=== PATIENT | male | born 1980 | race Caucasian/White ===

== ENCOUNTER 2021-06-14 15:05 | Emergency (ER) | payer OTHER, SELFPAY ==
--- NOTE | ~2021-06-14 | CT_ITS ---
EXAMINATION: CT soft tissue neck wo con DATE: 06/14/2021 17:27 INDICATION: Lump in throat. Dysphagia. TECHNIQUE: Computed tomography (CT) of the neck was performed without intravenous contrast. Automated exposure control and iterative reconstruction technique were employed. The dose-length product was 5 97.58 mGy-cm. COMPARISON: None FINDINGS: There is mild mediastinal lymphadenopathy measuring up to 2.4 x 1.5 cm. There are calcifica tions in right palatine tonsil. No abscess. There are a few nodules in right lung upper lobe measurin g up to 12 mm. There is mild cervical spondylosis. IMPRESSION: 1. Nodules in right lung measuring up to 12 mm, most likely inflammation or infection. Noncontrast, l ow-dose chest CT is recommended in 3 months. 2. Mild mediastinal lymphadenopathy. Reviewed, dictated and finalized at location A. IMPRESSION: 1. Nodules in right lung measuring up to 12 mm, most likely inflammation or inf ection. Noncontrast, low-dose chest CT is recommended in 3 months. 2. Mild mediastinal lymphadenopathy.
[2021-06-14 15:16] VITALS: BP 141/103; PULSE 125; RESP 20; TEMP 35.8; O2SAT 96
--- NOTE | 2021-06-14 17:07 | ED.GENADULT ---
HPI - General Adult General Chief complaint: Unspecified Stated complaint: lump in throat with covid Time Seen by Provider: 06/14/21 16:45 Source: patient Mode of arrival: ambulatory Limitations: no limitations History of Present Illness HPI narrative: This is a 40-year-old male that presents to the emergency department for feeling of a lump in his throat noted over the last 6 weeks. Reports he has been referred to ENT for this, but has been unable to make an appointment yet. He was also diagnosed with Covid 8 days ago. Reports he feels like it is getting difficult to swallow. Denies dyspnea. Related Data Home Medications Medication Instructions Recorded Confirmed cetirizine [Zyrtec] 10 mg PO DAILY 06/14/21 famotidine 20 mg PO DAILY 06/14/21 Allergies Allergy/AdvReac Type Severity Reaction Status Date / Time codeine Allergy Hives Verified 06/14/21 16:14 Review of Systems Review of Systems: CONSTITUTIONAL: Reports fever ENT: Reports sore throat RESPIRATORY: Reports cough. Denies dyspnea. All systems reviewed & are unremarkable except as noted in HPI and below PMFSH Past Medical History Medical History (Updated 06/14/21 @ 19:08 by Mary Cee PA-C) History of gastroesophageal reflux (GERD) History of seasonal allergies Exam Narrative: GENERAL: Well-appearing, well-nourished, and in no acute distress. HEAD: Normocephalic, atraumatic. EYES: EOMI. ENT: Nares clear, no rhinorrhea or epistaxis. Mucous membranes moist. Oropharynx without tonsillar hypertrophy exudate or other lesions. Bilateral TMs pearly kelley non-bulging NECK: Supple. No adenopathy or masses. CHEST: Clear to auscultation. No respiratory distress. No wheezes rales or rhonchi HEART: Regular rate and rhythm. No murmur heard. Normal peripheral pulses. EXTREMITIES: Normal range of motion. No edema. SKIN: Warm, dry, no rash. NEURO: No focal deficits. Alert and oriented x3. PSYCH: Normal mood and affect Course Vital Signs Vital signs: Vital Signs Temperature 96.4 F L 06/14/21 15:16 Pulse Rate 125 H 06/14/21 15:16 Respiratory Rate 20 06/14/21 15:16 Blood Pressure 141/103 H 06/14/21 15:16 Pulse Oximetry 96 06/14/21 15:16 Temperature 98.4 F 06/14/21 19:18 Pulse Rate 113 H 06/14/21 19:18 Respiratory Rate 20 06/14/21 19:18 Blood Pressure 145/82 H 06/14/21 19:18 Pulse Oximetry 97 06/14/21 19:18 Medical Decision Making MDM Narrative Medical decision making narrative: Patient presents emergency department for a feeling of lump in his throat noted over the last 6 weeks. He is afebrile and nontoxic-appearing. CBC and metabolic panel without concerning findings. ESR and CRP are not elevated. CT scan of the neck soft tissue shows a nodule in the right lung measuring up to 12 mm, most likely inflammation or infection. Noncontrast low-dose chest CT is recommended in 3 months. Also shows mild mediastinal lymphadenopathy. Patient was updated on case findings. Instructed that he likely needs to follow-up with a quality assurance manager for an EGD. He was able to tolerate oral intake in the ED. He is stable and felt appropriate for further outpatient evaluation. He was given warnings to return the ER Vital Signs Vital Signs: Vital Signs Temperature 96.4 F L 06/14/21 15:16 Pulse Rate 125 H 06/14/21 15:16 Respiratory Rate 20 06/14/21 15:16 Blood Pressure 141/103 H 06/14/21 15:16 Pulse Oximetry 96 06/14/21 15:16 Temperature 98.4 F 06/14/21 19:18 Pulse Rate 113 H 06/14/21 19:18 Respiratory Rate 20 06/14/21 19:18 Blood Pressure 145/82 H 06/14/21 19:18 Pulse Oximetry 97 06/14/21 19:18 Lab Data Lab results reviewed: Yes I reviewed the patient's lab results. Result diagrams: 06/14/21 17:38 06/14/21 17:38 Labs: Lab Results 06/14/21 06/14/21 Range/Units 17:38 17:38 WBC 5.4 (4.5-10.0) K/mm3 RBC 6.10 (4.6-6.20) M/mm3 Hgb 17.2 (14.0-18.0) g/
[2021-06-14 17:45] LABS: Basophils Percent Auto 0.2 % (0.2-1.2); Hematocrit 50.6 % (42.0-52.0); Hemoglobin 17.2 g/dL (14.0-18.0); Immature Granulocyte Absolute 0.02 K/mm3 (0.00-0.031); Immature Granulocyte Percent A 0.4 % (0-0.5); Lymphocytes Absolute Auto 1.17 K/mm3 (0.9-3.2); Lymphocytes Percent Auto 21.7 % (18.3-44.2); Mean Corpuscular Hemoglobin 28.2 pg (26-34); Mean Platelet Volume 9.7 fl (7.4-10.4); Monocytes Absolute Auto 0.9 K/mm3 (0.1-0.6); Monocytes Percent Auto 16.4 % (2.6-8.5); Neutrophils Absolute Auto 3.3 K/mm3 (1.3-6.7); Neutrophils Percent Auto 61.3 % (45.5-73.1); Platelet Count Result 178 k/mm3 (150-375); Red Cell Distribution Width 12.7 % (11.5-14.5); White Blood Count 5.4 K/mm3 (4.5-10.0)
[2021-06-14 17:57] LABS: Anion Gap 13 mmol/L (8-16); Blood Urea Nitrogen 9 mg/dL (9-20); CRP 0.8 mg/dL (<1.0); Calcium 9.9 mg/dL (8.4-10.2); Carbon Dioxide 19 mmol/L (22-30); Chloride 103 mmol/L (98-107); Estimated CRCL calculation 139 ml/min; Estimated Glomerular Filt Rate > 60; Glucose 93 mg/dL (65-110); Sodium 135 mmol/L (137-145)
[2021-06-14 18:16] LABS: Erythrocyte Sedimentation Rate 3 mm/hr (0-20)
[2021-06-14] MEDS: PANTOPRAZOLE SODIUM IV 40 MG VIAL IV PUSH (18:48)
[2021-06-14 19:18] VITALS: BP 145/82; PULSE 113; RESP 20; TEMP 36.9; O2SAT 97
[2021-06-14 19:48] VITALS: BP 145/82; PULSE 113; RESP 20; TEMP 36.9; O2SAT 97
== END 2021-06-14 19:50 | disposition home or self-care (01) ==
PROVIDERS: Physician Assistant; Emergency Provider Emergency Medicine
DX: R13.10 Dysphagia, unspecified (principal); U07.1 COVID-19; K21.9 Gastro-esophageal reflux disease without esophagitis; R91.8 Other nonspecific abnormal finding of lung field
CPT/HCPCS: 36415; 70490; 80048; 85025; 85652; 86140; 96374; 99284; C9113

== ENCOUNTER 2021-06-15 13:03 | Emergency (ER) | payer OTHER, SELFPAY ==
--- NOTE | ~2021-06-15 | XR_ITS ---
EXAMINATION: XR chest 1V portable DATE: 06/15/2021 15:09 INDICATION: Nausea and vomiting. Shortness of breath. COVID-19 positive. TECHNIQUE: A single frontal view of the chest was obtained. COMPARISON: Neck CT 06/14/2021 FINDINGS: There are mild patchy airspace opacities in the mid and lower lung zones. No pleural effusi on or pneumothorax. The heart size is normal. IMPRESSION: 1. Mild multifocal lung disease, consistent with COVID-19 pneumonia. Reviewed, dictated and finalized at location A.
[2021-06-15 13:13] VITALS: BP 128/96; PULSE 111; RESP 22; TEMP 36.8; O2SAT 97
[2021-06-15 13:47] VITALS: BP 129/91; PULSE 103; RESP 23; O2SAT 93
[2021-06-15] MEDS: ONDANSETRON HCL ODT 4 MG TABLET PO (14:38)
--- NOTE | 2021-06-15 14:38 | ED.GENADULT ---
HPI - General Adult General Chief complaint: Shortness of Breath/Dyspnea Stated complaint: COVID+, DIFFICULTY BREATHING Time Seen by Provider: 06/15/21 13:43 Source: patient Mode of arrival: ambulatory Limitations: no limitations History of Present Illness HPI narrative: 40-year-old male Previously healthy but no Covid vaccination He is Covid positive and has had a number of complaints over the last 8 or 9 days, including subjective fevers general weakness and fatigue, nausea, poor p.o. intake, difficulty swallowing, and occasional shortness of breath; not much of a cough Seen yesterday, ST neck CT fairly unremarkable apart from incidental nodule Related Data Home Medications Medication Instructions Recorded Confirmed cetirizine [Zyrtec] 10 mg PO DAILY 06/14/21 famotidine 20 mg PO DAILY 06/14/21 Allergies Allergy/AdvReac Type Severity Reaction Status Date / Time codeine Allergy Hives Verified 06/15/21 13:03 Review of Systems Review of Systems: All systems reviewed & are unremarkable except as noted in HPI and below Constitutional: Constitutional: Reports no additional constitutional complaints, Reports chills, Reports fatigue, Reports fever(s), Denies headache(s) and Reports weakness Eyes: Eyes: Reports no additional eye complaints and Denies change in vision ENT: Reports dysphagia, Reports dizziness, Denies headache(s) and Reports sore throat Cardiovascular: Cardiovascular: Denies chest pain and Denies dyspnea Respiratory: Respiratory: Reports dyspnea Gastrointestinal: Gastrointestinal: Denies abdominal pain, Denies diarrhea, Reports nausea and Reports vomiting Genitourinary: Genitourinary: Denies dysuria and Denies urinary frequency Musculoskeletal: Musculoskeletal: Reports myalgias, Denies deformity, Denies arthralgias, Denies joint swelling and Denies numbness Integumentary/Breasts: Skin/Breast: Denies rash and Denies wounds Neurologic: Denies headache(s), Denies focal weakness and Denies numbness Psychiatric: Psychiatric: Reports no additional psychiatric complaints Endocrine: Endocrine: Reports no additional endocrine complaints Hematologic/Lymphatic: Hematologic/Lymphatic: Reports no additional hematologic/lymphatic complaints Allergic/Immunologic: Allergic/Immunologic: Reports no additional allergic/immunologic complaints PMFSH Past Medical History Medical History (Updated 06/15/21 @ 14:40 by Moustapha Gasca MD) History of gastroesophageal reflux (GERD) History of seasonal allergies Social History Social History Gender identity (if verbalized by the patient): Male Exam Const: General: cooperative, no acute distress and alert Orientation/consciousness: patient oriented x3 (alert) HENMT: Head: normal to inspection, normocephalic and atraumatic Ears: external ears normal General nose exam: no epistaxis Mouth: Yes Normal oral and palatal mucosa present and Yes moist mucous membranes Eyes: Conjunctivae: conjunctivae normal Pupils: Equal, round and reactive pupils present EOM: EOMs intact bilaterally Neck: Neck: normal visual inspection, supple and no JVD Resp: Effort & Inspection: normal respiratory effort and not labored Auscultation: clear to auscultation bilaterally, no rales, no rhonchi, no wheezes and other (BS =) Cardio: Rate: regular rate Rhythm: regular rhythm Heart sounds: no murmurs GI: GI Palp: Yes Soft to palpation and No Tenderness to palpation present (GI) Skin: General skin exam: normal color and no rashes or lesions noted Neuro: General: patient oriented x3 (alert) and moves all extremities Speech: normal speech Extrem: General: normal to inspection and no pedal edema Psych: Affect: normal affect Course Vital Signs Vital signs: Vital Signs Temperature 36.8 C 06/15/21 13:13 Pulse Rate 111 H 06/15/21 13:13 Respiratory Rate 22 H 06/15/21 13:13 Blood Pressure 128/96 H 06/15/21 13:13 Pulse Oximetry 97 06/15/21 13:13
[2021-06-15 16:02] VITALS: BP 134/78; PULSE 78; RESP 18; O2SAT 99
== END 2021-06-15 16:04 | disposition home or self-care (01) ==
PROVIDERS: Emergency Provider Emergency Medicine
DX: U07.1 COVID-19 (principal); K21.9 Gastro-esophageal reflux disease without esophagitis; R91.8 Other nonspecific abnormal finding of lung field
CPT/HCPCS: 71045; 99283; A9270

== ENCOUNTER 2021-06-18 23:55 | Emergency (ER) | payer OTHER, SELFPAY ==
--- NOTE | ~2021-06-18 | XR_ITS ---
XR chest 2V DATE: 06/19/2021 00:23 INDICATION: Shortness of breath, cough TECHNIQUE: PA and lateral views COMPARISON: 06/15/2021 portable AP chest FINDINGS: Increased patchy consolidating infiltrates are noted in the mid and lower lung zones primar yamilka, consistent with bilateral pneumonia. No pleural effusion or pulmonary vascular congestion or pneumothorax. Normal heart size. No hilar or mediastinal enlargement. IMPRESSION: Patchy consolidating infiltrates involving primarily the mid and lower lung zones, increa sed since 06/15/2019, consistent with bilateral pneumonia Reviewed, dictated and finalized at location A. IMPRESSION: Patchy consolidating infiltrates involving primarily the mid and lo wer lung zones, increased since 06/15/2019, consistent with bilateral pneumonia
[2021-06-18 23:58] VITALS: BP 135/71; PULSE 103; RESP 20; TEMP 36.4; O2SAT 99
[2021-06-19 00:21] LABS: Basophils Percent Auto 0.2 % (0.2-1.2); Eosinophils Percent Auto 0.2 % (0-4.4); Hematocrit 48.3 % (42.0-52.0); Hemoglobin 16.5 g/dL (14.0-18.0); Immature Granulocyte Absolute 0.03 K/mm3 (0.00-0.031); Immature Granulocyte Percent A 0.5 % (0-0.5); Lymphocytes Absolute Auto 1.68 K/mm3 (0.9-3.2); Lymphocytes Percent Auto 26.7 % (18.3-44.2); Mean Corpuscular HGB Conc 34.2 g/dl (32-36); Mean Corpuscular Hemoglobin 27.8 pg (26-34); Mean Corpuscular Volume 81.3 fl (80-100); Mean Platelet Volume 10.1 fl (7.4-10.4); Monocytes Percent Auto 15.7 % (2.6-8.5); Neutrophils Absolute Auto 3.6 K/mm3 (1.3-6.7); Neutrophils Percent Auto 56.7 % (45.5-73.1); Platelet Count Result 200 k/mm3 (150-375); Red Blood Count 5.94 M/mm3 (4.6-6.20); Red Cell Distribution Width 12.7 % (11.5-14.5); White Blood Count 6.3 K/mm3 (4.5-10.0)
[2021-06-19 00:30] LABS: Anion Gap 10 mmol/L (8-16); Blood Urea Nitrogen 8 mg/dL (9-20); Carbon Dioxide 21 mmol/L (22-30); Chloride 101 mmol/L (98-107); Estimated Glomerular Filt Rate > 60; Glucose 95 mg/dL (65-110); Potassium 3.6 mmol/L (3.4-5.0); Sodium 132 mmol/L (137-145)
--- NOTE | 2021-06-19 00:30 | ECG_ITS ---
Measurements Intervals [place] Rate: 103 P: 4 NH: 124 QRS: 85 QRSD: 86 T: 48 QT: 334 QTc: 438 Interpretive Statements SINUS TACHYCARDIA INCOMPLETE RIGHT BUNDLE BRANCH BLOCK DELAYED PRECORDIAL R/S TRANSITION BORDERLINE T WAVE ABNORMALITY- INFERIOR LEADS BORDERLINE ECG Electronically Signed On 06-19-2021 7:43:20 CDT by Ramos Huang D.O.
[2021-06-19 02:28] VITALS: BP 119/79; PULSE 101; RESP 19; O2SAT 97
[2021-06-19 04:04] VITALS: BP 118/88; PULSE 93; RESP 20; O2SAT 94
[2021-06-19 04:27] LABS: Alveolar/Arterial O2 Gradient 38.8 mmHg; Carboxyhemoglobin 0.1 % THb (0-2.0); Fractional Inspired Oxygen 21 %; HCO3 ABG 21.6 mEq/l (22.0-26.0); Methemoglobin ABG 0.3 %THb (0-1.5); Oxygen Content ABG 22.2 %vol (16.0-22.0); Oxygen Saturation ABG 96.5 % (95.0-100.0); Oxyhemoglobin 94.8 % THb (90.0-100.0); PCO2 ABG 28.4 mmHg (35.0-45.0); PO2 ABG 76.9 mmHg (80.0-100.0); PO2 FiO2 Ratio Arterial Blood 3.66 %; Reduced Hemoglobin 4.8 %THb (0-5.0); Total Hemoglobin 16.7 g/dL (12.0-18.0)
[2021-06-19 04:28] LABS: Modified Allen's Test Pass; Site Drawn RIGHT RADIAL
[2021-06-19 04:29] LABS: Device ROOM AIR
[2021-06-19 05:01] LABS: Lactic Acid Reflex 1.1 mmol/L (0.7-2.1)
[2021-06-19 05:03] LABS: Prothrombin Time 13.2 Seconds (11.1-14.7)
[2021-06-19 05:05] LABS: CRP 3.4 mg/dL (<1.0)
[2021-06-19 05:07] LABS: D Dimer 0.46 ug/mL (<0.48)
[2021-06-19] MEDS: ALBUTEROL SULFATE (*SP) AEROSOL 1 PUFF 4 PUFF INHALATION (05:27)
[2021-06-19] MEDS: BENZONATATE 100 MG CAPSULE 200 MG PO (05:31)
--- NOTE | 2021-06-19 06:22 | ED.SOB ---
HPI - SOB/Dyspnea General Chief Complaint: Shortness of Breath/Dyspnea Stated Complaint: covid +, low oxygen sat Time Seen by Provider: 06/19/21 03:59 Source: patient and RN notes reviewed Mode of arrival: ambulatory Limitations: no limitations History of Present Illness HPI Narrative: This is a 40 year old Covid + male who presents for evaluation of worsening cough. Patient state he developed cough and fever on June 05 and he was found to have covid on June 07. He reports has been taking over the counter medication for his symptoms. He came to ER today because he is having difficulty sleep for the past few nights due to severe cough. He reports he is short of breath when he is coughing. He also reports his oxygen reported that his oxygen saturation was in the 80s. He reports chest pain only when he coughs. He denies vomiting. He has been using albuterol inhaler without relief. He denies leg swelling or calf pain. He also denies fever in the past 24 hours. Related Data Home Medications Medication Instructions Recorded Confirmed cetirizine [Zyrtec] 10 mg PO DAILY 06/14/21 famotidine 20 mg PO DAILY 06/14/21 Allergies Allergy/AdvReac Type Severity Reaction Status Date / Time codeine Allergy Hives Verified 06/15/21 13:03 Review of Systems Review of Systems: All systems reviewed & are unremarkable except as noted in HPI and below PMFSH Past Medical History Medical History (Updated 06/19/21 @ 06:32 by Elza Gonzalez MD) History of gastroesophageal reflux (GERD) History of seasonal allergies Social History Social History (Updated 06/19/21 @ 06:27 by Elza Gonzalez MD) Smoking status: Never smoker Gender identity (if verbalized by the patient): Male Exam Const: General: no acute distress and alert Orientation/consciousness: patient oriented x3 Eyes: EOM: EOMs intact bilaterally Chest: Chest palpation & inspection: normal inspection of the chest Resp: Effort & Inspection: normal respiratory effort, not labored, no retractions and not tachypneic Auscultation: clear to auscultation bilaterally Other: able to speak in full complete sentences without distress Cardio: Rate: regular rate Rhythm: regular rhythm Heart sounds: no murmurs GI: GI Palp: Yes Soft to palpation, No Tenderness to palpation present (GI) and No Guarding due to palpation present (GI) Auscultation: normal bowel sounds Back/Spine/Pelvis: Back: no CVA tenderness Skin: General skin exam: normal color Rashes: no rashes Neuro: General: patient oriented x3, moves all extremities and CN's II-XI intact bilaterally Extrem: General: normal to inspection Psych: Mental Status: mental status grossly normal Affect: normal affect Course Reevaluation(s) Reevaluation #1: Patient was ambulated with pulse oximeter. It is reported that his saturation was mostly in 95% and it dropped lowest to 93% . I have discussed with patient plan to discharge home. He does not require oxygen at this time. He is outside of window for remdesivir. I discussed symptomatic management. Date: 06/19/21 Time: 06:28 Vital Signs Vital signs: Vital Signs Temperature 97.5 F L 06/18/21 23:58 Pulse Rate 103 H 06/18/21 23:58 Respiratory Rate 20 06/18/21 23:58 Blood Pressure 135/71 06/18/21 23:58 Pulse Oximetry 99 06/18/21 23:58 Temperature 97.5 F L 06/18/21 23:58 Pulse Rate 108 H 06/19/21 06:50 Respiratory Rate 20 06/19/21 06:50 Blood Pressure 125/89 06/19/21 06:50 Pulse Oximetry 91 06/19/21 06:50 MDM - SOB/Dyspnea Lab Data Attestation: I reviewed the patient's lab results. Result diagrams: 06/19/21 00:05 06/19/21 00:05 Labs: Lab Results 06/19/21 06/19/21 06/19/21 Range/Units 00:05 00:05 04:21 WBC 6.3 (4.5-10.0) K/mm3 RBC 5.94 (4.6-6.20) M/mm3 Hgb 16.5 (14.0-18.0) g/dL Hct 48.3 (42.0-52.0) % MCV 81.3 (80-100) fl MCH 27.8 (26-34) pg
[2021-06-19 06:50] VITALS: BP 125/89; PULSE 108; RESP 20; O2SAT 91
== END 2021-06-19 07:01 | disposition home or self-care (01) ==
PROVIDERS: Emergency Provider General Practice
DX: U07.1 COVID-19 (principal); J12.82 Pneumonia due to coronavirus disease 2019; K21.9 Gastro-esophageal reflux disease without esophagitis; R00.0 Tachycardia, unspecified; I45.10 Unspecified right bundle-branch block; R94.31 Abnormal electrocardiogram [ECG] [EKG]
CPT/HCPCS: 36415; 36600; 71046; 80048; 82375; 82728; 82805; 83050; 83605; 83735; 85025; 85380; 85610; 85730; 86140; 93005; 94640; 99284; A9270

== ENCOUNTER 2023-01-19 08:25 | Emergency (ER) | payer OTHER, SELFPAY ==
--- NOTE | 2023-01-19 08:27 | ED.BACK ---
HPI - Back Pain/Injury General Chief Complaint: Back Pain/Injury Stated Complaint: Lower back pain Time Seen by Provider: 01/19/23 08:40 Source: patient and RN notes reviewed Mode of arrival: ambulatory Limitations: no limitations History of Present Illness HPI Narrative: 42-year-old male presents with concern for low back pain. Reports he was working on his back in the gym yesterday and then went home and ?overdid it?. Reports he began having low back pain that radiates down both legs and to the groin. He has not taken any [id number]-lkjolag medications for his symptoms. Reports he has had similar pain like this once in the past that he did not seek treatment for. He denies loss of bowel or bladder function, perianal anesthesia, weakness in any extremity, abdominal pain, fever MD elicited complaint: back pain Related Data Home Medications Medication Instructions Recorded Confirmed omalizumab 75 mg/0.5 mL 75 mg subcut MONTHLY 01/19/23 01/19/23 subcutaneous syringe (Xolair) Allergies Allergy/AdvReac Type Severity Reaction Status Date / Time codeine Allergy Hives Verified 01/19/23 08:39 Review of Systems Review of Systems: CONSTITUTIONAL: Denies malaise, chills, sweats, or fever. CARDIOVASCULAR: Denies chest pain, palpitations, or edema. RESPIRATORY: Denies cough or dyspnea. GASTROINTESTINAL: Denies abdominal pain, nausea, vomiting, diarrhea, loss of bowel function GENITOURINARY: Denies dysuria, hematuria, frequency, loss of bladder function. SKIN: Denies rash or itching. MUSCULOSKELETAL: Reports low back pain that radiates to both legs NEUROLOGIC: Denies numbness, weakness, or headache. All systems reviewed & are unremarkable except as noted in HPI and below PMFSH Past Medical History Medical History (Updated 01/19/23 @ 08:47 by Lorrie Reyes NP) History of gastroesophageal reflux (GERD) History of seasonal allergies Social History Social History (Updated 06/19/21 @ 06:27 by Elza Gonzalez MD) Smoking status: Never smoker Gender identity (if verbalized by the patient): Male Comments At time of signature, agree with nursing past medical, surgical, social and family history. There is no relevant family history pertinent to the presenting complaint Exam Narrative: GENERAL: Well-appearing, well-nourished, and in no acute distress. HEAD: Normocephalic, atraumatic. EYES: PERRLA and EOMI. NECK: Supple. No lymphadenopathy. CHEST: Clear to auscultation. No respiratory distress. HEART: Regular rate and rhythm. Distal pulses palpable and equal, cap refill <3 seconds ABDOMEN: Soft, nontender, nondistended, normal active bowel sounds, no palpable or pulsatile masses. No CVA tenderness MUSCULOSKELETAL: Normal range of motion and strength in all extremities; 5/5 strength with hip flexion and extension, dorsiflexion and extension, knee flexion and extension, plantar flexion and extension. Normal sensation in dermatomal distributions with sensitivity to light touch and pain. No midline back tenderness to palpation. No paraspinal tenderness. Transfers from sitting to standing. SKIN: Warm, dry, no rash. No ecchymosis, erythema, open wounds to back. NEURO: No focal deficits. Alert and oriented x3. Reflexes intact. Normal gait. PSYCH: Normal mood and affect Course Course Emergency Course: Patient is aware of diagnosis, understands and agrees to treatment plan. Anticipatory guidance given. Patient agrees to follow-up as directed and is aware of reasons to seek care at the emergency department. Portions of this record may have been created with voice recognition software Level of Care: Express Care Visit Vital Signs Vital signs: Reviewed. MDM - Back Pain/Injury MDM Narrative Medical decision making narrative: No risk factors or findings concerning for epidural abscess, diskitis, vertebral osteomyelitis, cord compression, cauda equina, vertebral fracture or bone malignancy, AAA, or pyelonephritis. Patient i
[2023-01-19 08:38] VITALS: BP 135/81; PULSE 77; RESP 16; TEMP 36.3; O2SAT 99
== END 2023-01-19 08:53 | disposition home or self-care (01) ==
PROVIDERS: Emergency Provider Nurse Practitioner; PCP Family Medicine
DX: M54.50 Low back pain, unspecified (principal); K21.9 Gastro-esophageal reflux disease without esophagitis
CPT/HCPCS: 99213; G0463

== ENCOUNTER 2023-02-02 18:16 | Emergency (ER) | payer OTHER, SELFPAY ==
[2023-02-02 18:26] VITALS: BP 133/87; PULSE 79; RESP 16; TEMP 36.4; O2SAT 97
--- NOTE | 2023-02-02 18:26 | ED.HA ---
HPI - Headache General Chief Complaint: Headache Stated Complaint: severe Headache/nausea dizzy Time Seen by Provider: 02/02/23 18:26 History of Present Illness HPI Narrative: Patient is a 42-year-old male who presents to urgent care with complaints of a severe right-sided headache. Patient states that had a sudden onset at noon today and he has taken 1 aspirin without relief. Patient states he felt great this morning, went to the gym did a good workout. Denies any recent illness. States he is now having some blurry vision bilaterally. States that ?this is the worst headache he has ever had?. Patient has not been diagnosed with migraines in the past. Denies any exacerbation to light or sound. Denies any nausea or vomiting. No other acute complaints. No acute distress noted. Patient aware of the plan of care. Some parts of this dictation were generated by voice recognition software and may contain typographical and/or grammatical inaccuracies. Related Data Home Medications Medication Instructions Recorded Confirmed omalizumab 75 mg/0.5 mL 75 mg subcut MONTHLY 01/19/23 01/19/23 subcutaneous syringe (Xolair) famotidine 40 mg tablet mg 02/02/23 Allergies Allergy/AdvReac Type Severity Reaction Status Date / Time codeine Allergy Hives Verified 01/19/23 08:39 Review of Systems Review of Systems: CONSTITUTIONAL: Denies fever, chills, or sweats. EYES: Denies visual changes, redness, or discharge. ENT: Denies rhinorrhea, congestion, sore throat, or otalgia. CARDIOVASCULAR: Denies chest pain, palpitations, or edema. RESPIRATORY: Denies cough or dyspnea. GASTROINTESTINAL: Denies abdominal pain, nausea, vomiting, or diarrhea. GENITOURINARY: Denies dysuria or hematuria. SKIN: Denies rash or itching. MUSCULOSKELETAL: Denies back pain, joint pain, or myalgia. NEUROLOGIC: Reports of severe headache and blurry vision All other systems reviewed are negative, except as documented in HPI. [facility] Past Medical History Medical History (Updated 02/02/23 @ 18:47 by ELLI San) History of gastroesophageal reflux (GERD) History of seasonal allergies Social History Social History (Updated 06/19/21 @ 06:27 by Elza Gonzalez MD) Smoking status: Never smoker Gender identity (if verbalized by the patient): Male Comments At the time of my signature, I reviewed and agree with the nursing past medical, surgical, social, and family history. There is no relevant family history pertinent to the patient complaint. Exam Narrative: GENERAL: This is a well-nourished, well-developed patient, in no apparent distress. HEAD: normocephalic, atraumatic. EYES: PERRL. Sclera clear/white. Vision is grossly intact. EARS: External ears normal NOSE: External nose normal with no obvious nasal discharge, nares without redness, no rhinorrhea. THROAT: Mucous membranes moist NECK: Neck supple CARDIOVASCULAR: Regular rate and rhythm without murmurs, gallops, or rubs. RESPIRATORY: Clear to auscultation. Breath sounds equal bilaterally. No wheezes, rales, or rhonchi. SKIN: warm, intact with no suspicious lesions or rash, good texture and turgor. NEURO: awake, alert, and oriented to person, place and time. There were no obvious focal neurologic abnormalities. EXTREMITIES: No clubbing, cyanosis, or edema. Course Course Level of Care: Express Care Visit Vital Signs Vital signs: Vital Signs Temperature 97.5 F L 02/02/23 18:26 Pulse Rate 79 02/02/23 18:26 Respiratory Rate 16 02/02/23 18:26 Blood Pressure 133/87 02/02/23 18:26 Pulse Oximetry 97 02/02/23 18:26 Oxygen Delivery Room Air 02/02/23 18:26 Temperature 97.5 F L 02/02/23 18:26 Pulse Rate 79 02/02/23 18:26 Respiratory Rate 16 02/02/23 18:26 Blood Pressure 133/87 02/02/23 18:26 Pulse Oximetry 97 02/02/23 18:26 Oxygen Delivery Room Air 02/02/23 18:26 Reviewed Transfer Transfered to: [facility] Transportation: Other ([place]
== END 2023-02-02 19:00 | disposition home or self-care (01) ==
PROVIDERS: Emergency Provider Nurse Practitioner Family
DX: R51.9 Headache, unspecified (principal)
CPT/HCPCS: 99212; G0463

== ENCOUNTER 2024-11-29 08:00 | Emergency (ER) | payer OTHER, SELFPAY ==
[2024-11-29 08:10] VITALS: BP 130/98; PULSE 129; RESP 20; TEMP 36.3; O2SAT 92
--- NOTE | 2024-11-29 08:17 | ED_ITS ---
HPI - General Adult General Chief complaint: GI Bleed Stated complaint: vomiting dark red blood Time Seen by Provider: 11/29/24 08:04 History of Present Illness HPI narrative: 44-year-old male presents emergency department for evaluation for nausea vomiting and diarrhea. Patient reports that his symptoms started yesterday and had decreased p.o. intake. Patient states he has had heart palpitations with this. Patient was concerned this morning because he did have some streaked blood in his emesis. Patient denies any shyam blood. Patient denies any prior history of significant GI bleed. Patient states he does have a history of aggressive emesis and also has a history of gastritis. Patient does take aspirin and atorvastatin. Patient is following up with primary care physician and they are following his blood pressures the patient does not take any blood pressure medications. Related Data Home Medications ?Medication ?Instructions ?Recorded ?Confirmed ?Last Taken ?Type omalizumab 75 mg/0.5 mL 75 mg subcut MONTHLY 01/19/23 01/19/23 Unknown History subcutaneous syringe (Xolair) famotidine 40 mg tablet mg 02/02/23 Unknown History Allergies Allergy/AdvReac Type Severity Reaction Status Date / Time codeine Allergy Hives Verified 11/29/24 08:02 topiramate Allergy Unknown Verified 11/29/24 08:02 Review of Systems 2 Review of Systems: All systems reviewed & are unremarkable except as noted in HPI and below PMFSH Past Medical History Medical History (Updated 11/29/24 @ 11:01 by Nomi Solano MD) History of gastroesophageal reflux (GERD) History of seasonal allergies Social History Social History (Updated 06/19/21 @ 06:27 by Elza Gonzalez MD) Smoking status: Never smoker Gender identity (if verbalized by the patient): Male Exam 2 Narrative: APPEARANCE: Ill-appearing HEAD: normocephalic, atraumatic. EYES: PERRLA/EOMI, conjunctivae clear. NOSE: Normal no drainage EARS:TMS clear with good light reflex. THROAT: Pharynx clear, no exudate. NECK: Supple. No adenopathy, no masses. RESPIRATORY: Airway patent, respirations nonlabored. Clear to auscultation bilaterally, no rales, rhonchi, wheezing. CARDIOVASCULAR: Regular rate and rhythm without murmurs rubs or gallops. ABDOMINAL: Mild epigastric tenderness to palpation without rebound, normal bowel sounds MUSCULOSKELETAL: Moves all extremities. Strength/ROM intact, No edema, No calf tenderness. NEURO: Alert. Cranial nerves II through XII intact. Good gait. Good coordination SKIN: Warm, dry. Normal Color Course Vital Signs Vital signs: Vital Signs Temperature 97.4 F L 11/29/24 08:10 Pulse Rate 129 H 11/29/24 08:10 Respiratory Rate 20 11/29/24 08:10 Blood Pressure 130/98 H 11/29/24 08:10 Pulse Oximetry 92 11/29/24 08:10 Temperature 97.4 F L 11/29/24 08:10 Pulse Rate 107 H 11/29/24 11:15 Respiratory Rate 16 11/29/24 11:15 Blood Pressure 120/80 11/29/24 11:15 Pulse Oximetry 98 11/29/24 11:15 Medical Decision Making MDM Narrative Medical decision making narrative: 44 old male presenting to the emergency department for evaluation for nausea vomiting and diarrhea. Patient had elevated heart rate on arrival but was treated with 2 L of IV fluid. Patient does have a white blood cell count of 16.2 and hemoglobin of 17.6. No acute abnormalities on the patient's CMP. On re-evaluation patient states he does feel significantly improved. Patient will be treated with omeprazole for home was Zofran and instructions for clear liquid diet. Patient and family are updated on reasons to return to the emergency department Differential Diagnosis Differential Diagnosis: Gastroenteritis, GI bleed, influenza, RSV, COVID, viral syndrome, esophageal rupture, Cassidy-Chery tear, [place] Vital Signs Vital Signs: Vital Signs Temperature 97.4 F L 11/29/24 08:10 Pulse Rate 129 H 11/29/24 08:10 Respiratory Rate 20 11/29/24 08:10 Blood Pressure 130/98 H 11/29/24 08:10 Pulse Oximetry 92 11/29/24 08:10 Temperature 97.4 F L 11/29/24 08:10 Pulse Rate 107 H 11/29/24 11:15 Respiratory Rate 16 11/29/24 11:15 Blood Pressure 120/80 11/29/24 11:15 Pulse Oximetry 98 11/29/24 11:15 Lab Data Lab results reviewed: Yes I reviewed the patient's lab results. 11/29/24 08:16 11/29/24 08:16 Labs: Lab Results 11/29/24 Range/Units 08:16 WBC 16.2 H (4.5-10.0) K/mm3 RBC 6.13 (4.6-6.20) M/mm3 Hgb 17.6 (14.0-18.0) g/dL Hct 51.7 (42.0-52.0) % MCV 84.3 (80-100) fl MCH 28.7 (26-34) pg MCHC 34.0 (32-36) g/dl RDW 12.9 (11.5-14.5) % Plt Count 298 (150-375) k/mm3 MPV 9.5 (7.4-10.4) fl Immature Gran % (Auto) 0.3 (0-0.5) % Neut % (Auto) 87.2 H (45.5-73.1) % Lymph % (Auto) 4.7 L (18.3-44.2) % [place] % (Auto) 6.4 (2.6-8.5) % Eos % (Auto) 1.1 (0-4.4) % Baso % (Auto) 0.3 (0.2-1.2) % Lymph # (Auto) 0.76 L (0.9-3.2) K/mm3 [place] # (Auto) 1.0 H (0.1-0.6) K/mm3 Eos # (Auto) 0.2 (0-0.3) K/mm3 Baso # (Auto) 0.1 (0.0-0.1) K/mm3 Abs Immat Gran (auto) 0.05 H (0.00-0.031) K/mm3 Absolute Neuts (auto) 14.1 H (1.3-6.7) K/mm3 Absolute Nucleated RBC 0.000 (0.0-0.012) K/mm3 Nucleated RBC % 0.0 (0.0-0.2) % PT 15.0 H (11.1-14.7) Seconds INR 1.2 APTT 27.0 (22.3-36.8) Seconds Sodium 138 (137-145) mmol/L Potassium 4.6 (3.4-5.0) mmol/L Chloride 102 (98-107) mmol/L Carbon Dioxide 20 L (22-30) mmol/L Anion Gap 16 H (4-12) mmol/L BUN 18 D (9-20) mg/dL Creatinine 0.75 (0.7-1.3) mg/dL Estim Creat Clear Calc 134 ml/min Estimated GFR > 60 (59 - ) Glucose 134 H (65-110) mg/dL Lactic Acid 2.4 H (0.7-2.0) mmol/L Calcium 9.6 (8.4-10.2) mg/dL Total Bilirubin 1.7 H (0.2-1.3) mg/dL AST 37 (17-59) U/L ALT 73 H (6-50) U/L Alkaline Phosphatase 50 (38-126) U/L Total Protein 9.0 H (6.3-8.2) g/dL Albumin 5.0 (3.5-5.1) g/dL Blood Type A Positive Antibody Screen Negative Discharge Plan Discharge Clinical Impression: Nausea vomiting and diarrhea Patient Disposition: Home, Self-Care Condition: Stable Instructions: Antibiotic Form, Gastritis (ED), Clear Liquid Diet (ED) Additional Instructions: Clear liquid diet for the next 1-3 days. Zofran as needed for nausea control. Omeprazole as directed for the next 14 days. Avoid NSAIDs and avoid alcohol. If you have any worsening symptoms then please call or return to the emergency department. Have close follow-up with your primary care physician. Patient Language: Somali Prescriptions: New omeprazole 20 mg capsule,delayed release(DR/EC) 20 mg PO DAILY 14 Days Qty: 14 0RF ondansetron 4 mg tablet,disintegrating 4 mg PO Q8H PRN (Reason: nausea and vomiting) Qty: 14 0RF No Action famotidine 40 mg tablet Xolair 75 mg/0.5 mL syringe 75 mg SUBCUT MONTHLY ibuprofen 800 mg tablet 800 mg PO Q6H PRN (Reason: pain) Qty: 30 0RF Follow-up/Referrals: PHYSICIAN NOT ON STAFF,NONSTAFF [Non-Staff] -
[2024-11-29 08:24] LABS: Basophils Absolute Auto 0.1 K/mm3 (0.0-0.1); Basophils Percent Auto 0.3 % (0.2-1.2); Eosinophils Absolute Auto 0.2 K/mm3 (0-0.3); Eosinophils Percent Auto 1.1 % (0-4.4); Hematocrit 51.7 % (42.0-52.0); Hemoglobin 17.6 g/dL (14.0-18.0); Immature Granulocyte Absolute 0.05 K/mm3 (0.00-0.031); Immature Granulocyte Percent A 0.3 % (0-0.5); Lymphocytes Absolute Auto 0.76 K/mm3 (0.9-3.2); Lymphocytes Percent Auto 4.7 % (18.3-44.2); Mean Corpuscular Hemoglobin 28.7 pg (26-34); Mean Corpuscular Volume 84.3 fl (80-100); Mean Platelet Volume 9.5 fl (7.4-10.4); Monocytes Percent Auto 6.4 % (2.6-8.5); Neutrophils Absolute Auto 14.1 K/mm3 (1.3-6.7); Neutrophils Percent Auto 87.2 % (45.5-73.1); Platelet Count Result 298 k/mm3 (150-375); Red Blood Count 6.13 M/mm3 (4.6-6.20); Red Cell Distribution Width 12.9 % (11.5-14.5); White Blood Count 16.2 K/mm3 (4.5-10.0)
[2024-11-29 08:34] LABS: Lactic Acid Reflex 2.4 mmol/L (0.7-2.0)
[2024-11-29 08:35] LABS: Alanine Aminotransferase 73 U/L (6-50); Alkaline Phosphatase 50 U/L (38-126); Anion Gap 16 mmol/L (4-12); Aspartate Amino Transferase 37 U/L (17-59); Bilirubin,Total 1.7 mg/dL (0.2-1.3); Blood Urea Nitrogen 18 mg/dL (9-20); Calcium 9.6 mg/dL (8.4-10.2); Carbon Dioxide 20 mmol/L (22-30); Chloride 102 mmol/L (98-107); Estimated CRCL calculation 134 ml/min; Estimated Glomerular Filt Rate > 60; Glucose 134 mg/dL (65-110); Potassium 4.6 mmol/L (3.4-5.0); Sodium 138 mmol/L (137-145)
[2024-11-29] MEDS: HYDROmorphone HCL INJ (*CRX) 1 MG/ML SYR 0.5 MG IV PUSH (08:36)
[2024-11-29] MEDS: PANTOPRAZOLE SODIUM IV 40 MG VIAL IV PUSH (08:37)
[2024-11-29] MEDS: FAMOTIDINE 20 MG/2 ML VIAL IV PUSH (08:37)
[2024-11-29] MEDS: ONDANSETRON INJ 4 MG/2 ML VIAL IV PUSH (08:37)
[2024-11-29] MEDS: SODIUM CHLORIDE 0.9% IV 1,000 ML 999 ML IV CONT (08:37)
[2024-11-29 08:41] LABS: INR 1.2
[2024-11-29 08:45] VITALS: BP 144/100; PULSE 128; RESP 20; O2SAT 92
[2024-11-29 09:43] VITALS: BP 140/75; PULSE 110; RESP 19; O2SAT 96
[2024-11-29 10:34] VITALS: BP 120/90; PULSE 108; RESP 19; O2SAT 95
[2024-11-29 11:15] VITALS: BP 120/80; PULSE 107; RESP 16; O2SAT 98
[2024-11-29 11:22] LABS: Reflex Lactic Acid Yes or No Add Lactic
--- OUTSIDE RECORDS SUMMARY | 2024-12-01 15:53 | XMS_ITS | Clinical Summary ---
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 Topiramate Confusion Low 09/25/2023 Mood changes Medications cetirizine (ZyrTEC) 10 mg tablet Take 10 mg by mouth daily. Active famotidine (PEPCID) 40 mg tablet Take 40 mg by mouth daily. Active ALBUTEROL INHALATION 09/08/2022 Active fluticasone propionate (FLONASE) 50 mcg/spray [place], Suspension nasal inhaler 09/09/2022 Activ e OTHER Allergy shot once every 2 weeks Active esomeprazole (NexIUM) 20 mg Capsule, Delayed Release(E.C.) Take 20 mg by mouth daily before breakfast. Takes only when his pepcid is not working as well Active rimegepant 75 mg Tablet, Rapid Dissolve Take 75 mg by mouth daily. 09/14/2023 Active amoxicillin (AMOXIL) 875 mg tabletIndicatio ns:Acute maxillary sinusitis, recurrence not specified Take 1 Tablet (875 mg) by mouth every 12 hours. 20 Tablet 06/09/2024 Active atorvastatin (LIPITOR) 40 mg tablet Take 1 Tablet (40 mg) by mouth daily at bedtime. 90 Tablet 07/28/2024 Active Active Problems Problem Noted Date Diagnosed Date Atherosclerosis of [place] ronary artery of [place] heart without angina pectoris 12/24/2023 Overview (12/24/2023): Cardiac cath 10/2023. Cardiolgist Dr. Baldwin. On statin, ASA. Chronic headaches 12/24/2023 Overview (12/24/2023): Neuro- [facility]. Dr. Galeano Chronic cough 12/08/2022 Non-seasonal allergic rhinitis 11/05/2022 Dysfunction of both eustachian tubes 10/26/2017 Resolved Problems Problem Noted Date Diagnosed Date Resolved Date Tobacco use 11/24/2018 02/05/2024 Overview (05/14/2023): Pipe smoker ave once monthly at most. Off since Dec 2022. Dizziness 10/26/2017 12/24/2023 Encounters Date Type Department Care Team Description 11/30/2024 External Device Data [facility]STRACTION Provider, Abstract 11/23/2024 External Device Data [facility] Provider, Abstract 11/15/2024 External Device Data [facility] Provider, Abstract 09/13/2024 External Device Data [facility] Provider, Abstract 09/07/2024 External Device Data [facility] Provider, Abstract 09/06/2024 External Device Data [facility]STRACTION Provider, Abstract from Last 3 Months Immunizations Immunization Administration Dates Next Due (ADACEL/BOOSTRIX)(10 YR UP) TDAP VACCINE, 0.5ML, IM 09/28/2018 (IPOL)(6 WKS AND UP) POLIOVI ROSS VACCINE, INACTIVATED (IPV), 3 DOSE, SUBCUT OR IM 06/19/2000 (M-M-R II/PRIORIX)(12 MO UP) MEASLES, MUMPS AND RUBELLA VIRUS VACCINE, 0.5 ML IM/SUBCUT 06/19/2000 (SPIKEVAX) (12 YRS UP PRIMAR Y SERIES) COVID-19 VACCINE - MRNA-1273(PF) 100 MCG/0.5 ML IM SUSP 08/01/2021,07/02/2021 (TDVAX)(7 YRS UP) TETANUS AN D DIPHTHERIA TOXOIDS, ADSORBED (2 LF OF TETANUS TOXOID AND 2 LF OF DIPHTHERIA TOXOID), 0.5ML (PF), IM 06/12/2000 (TYPHIM )(2 YRS UP) TYPHOI D CAPSULAR POLYSACCHARIDE VACCINE, 0.5 ML, IM 10/10/2003 (YF-VAX)(9 MOS UP) YELLOW FE RONDA VACCINE, 0.5 ML, SUBCUT 04/05/2002 Hepatitis A Vaccine 05/31/2001,06/19/2000 INFLUENZA VACCINE QUADRIVALE NT 6 MOS UP PF IM 09/25/2022 INFLUENZA VACCINE TRIVALENT SPLIT VIRUS, (6 MOS UP), 0.5ML (PF), IM 08/18/2024 Influenza Seasonal Unspecifi ed Formulation IM 09/09/2021,08/22/2003,09/12/2002,09/16,10/15/2000 Influenza Vaccine Nasal 10/07/2007,08/19,09/11/2005,12/03 Meningococcal ACWY Vaccine, Unspecified Formulation 06/12/2000 Meningococcal Polysaccharide Vaccine, Serogroups A, C, Y, W-135, quadrivalent (Mpsv4) SQ 06/12/2000 Typhoid Vaccine IM 10/10/2003,05/31/2001 Typhoid Vaccine, Parenteral, Other Than Acetone-killed, Drid 05/31/2001 Family History Medical History Relation Name Comments Sudden Father Unknown Father Cancer Maternal Grandfather Abdirahman Holder Heart Attack Maternal Grandfather Abdirahman Holder Heart Disease Maternal Grandfather Abdirahman Holder Heart Disease Maternal Grandmother Brenda Torres Diabetes Mother Betzaida Dee Osteoporosis Mother Betzaidasam Dee Heart Disease Paternal Grandfather Diabetes Paternal Grandmother Sejalcamden [place] No Known Problems Sister Asthma Son Jose Peña Eczema Son Jose Peña Relation Name Status Comments Father Maternal Grandfather Abdirahman Holder Maternal Grandmother Brenda Torres Mother Betzaida Dee Alive Paternal Grandfather Alive Paternal Grandmother Sejalcamden [place] Sister Alive Son Jose Peña Alive Social History Tobacco Use Types Packs/Day Years Used Date Smoking Tobacco: Former Pipe Smokeless Tobacco: Never Comments:Intermittent use. M ore often during the colder months. Alcohol Use Standard Drinks/Week Comments Yes 1 (1 standard drink = 0.6 oz pur e alcohol) Intermittent use. Sex and Gender Information Value Date Recorded Sex Assigned at Not on file Legal Sex Male 9:52 AM CDT Gender Identity Not on file Sexual Orientation Not on file Last Filed Vital Signs Vital Sign Reading Time Taken Comments Blood Pressure 124/76 06/09/2024 10:49 AM CDT Pulse 90 06/09/2024 10:49 AM CDT Temperature 37.1 ??C (98.7 ??F) 06/09/2024 10:49 AM C DT Respiratory Rate 18 06/09/2024 10:49 AM CDT Oxygen Saturation 98% 06/09/2024 10:49 AM CDT Inhaled Oxygen Concentration - - Weight 112 kg (247 lb) 06/09/2024 10:49 AM CDT Height 171.5 cm (5' 7.5 ) 06/09/2024 10:49 AM CD T Body Mass Index 38.11 06/09/2024 10:49 AM CDT Plan of Treatment Health Maintenance Due Date Last Done Comments HEPATITIS B VACCINES (1 of 3 - 19+ 3-dose series) 1999 Pre-Diabetes and Diabetes Screening 06/26/2025 06/26/2022 DTAP/TDAP/TD VACCINES (3 - Td or Tdap) 05/14/2034 05/14/2024, 09/28/2018, 06/12/2000 COVID-19 Vaccine Completed 08/12/2024, 11/2022, 08/01/2021, Additional history exists INFLUENZA VACCINE Completed 08/18/2024, , 09/25/2022, Additional history exists HPV VACCINES Aged Out No longer eligi ble based on patient's age to complete this topic Procedures Procedure Name Priority Date/Time Associated Diagnosis Comments HEMOGLOBIN A1C Routine 06/26/2022 8:26 AM CDT Screening for condition from Last 3 Months or Most Recently Relevant to Health Maintenance Results * HEMOGLOBIN A1C (06/26/2022 8:26 AM CDT) HEMOGLOBIN A1C 4.9 <5.7 % of total Hgb [facility] Comment: For the purpose of screening for the presence of diabetes: <5.7% ? Consistent with the absence of diabetes 5.7-6.4% ?Consistent with increased risk for diabetes ?(prediabetes) > or =6.5% ??Consistent with diabetes This assay result is consistent with a decreased risk of diabetes. Currently, no consensus exists regarding use of hemoglobin A1c for diagnosis of diabetes in children. According to [place] Diabetes Association (ADA) guidelines, hemoglobin A1c <7.0% represents optimal control in non- diabetic patients. Different metrics may apply to specific patient populations. Standards of Medical Care in Diabetes(ADA). ?? ESTIMATED AVERAGE GLUCOSE (MG/DL) 94 mg/dL [facility] ESTIMATED AVERAGE GLUCOSE (MMOL/L) 5.2 mmol/L [facility] Comment: Test Performed at: [email or web address] [id number] [address] ??[id number] Ameya Means D.O., MPH Blood 06/26/2022 8:26 AM CDT 06/27/2022 6:36 AM CDT Shanel Sykes CREDIT INVESTIGATOR CHEMISTRY ORDERABLES F inal Result [facility] [phone] [facility] [id number] [facility] [place] [id number] from Last 3 Months or Most Recently Relevant to Health Maintenance Insurance [address] OPEN ACCESS * Guarantor: [employer] Account Type Relation to Patient Date of Phone Billing Address Corporate Employer ATTN: PEDRO ALANIS [address] [address] [place] OPEN ACCESS * Guarantor: [employer] Account Type Relation to Patient Date of Phone Billing Address Corporate Employer ATTN: PEDRO ALANIS [address] [address]
--- OUTSIDE RECORDS SUMMARY | 2024-12-01 15:53 | XMS_ITS | Referral Summary ---
Author Organization [facility] Address [address] [place] [address] Care Team Providers Care Director Of Acquisition Marketing Name Role Phone Indiana Sánchez OT Unavailable Unavailable Jenny Caban PLATE PRINTER Primary Care Provider [phone] Encounters Date Type Department Care Team Description 11/28/2024 1:30 PM THEOLOGY PROFESSOR Office Visit [facility] [address] [facility] [address] [place] [address] Angy Frank NP Memory loss (Primary Dx); Chronic migraine without aura without status migrainosus, not intractable; Brain fog 10/25/2024 7:45 PM THEOLOGY PROFESSOR Office Visit [facility] Care at [address] [place] [address] Holly Mota NP Acute maxillary sinusitis, recurrence not specified (Primary Dx) 10/13/2024 1:15 PM THEOLOGY PROFESSOR Office Visit [facility] [address] [address] Cornelius Lennon MD Disorder of nail coloration (Primary Dx); Morbid obesity with BMI of 40.0-44.9, adult (HCC) from Last 3 Months Allergies Active Allergy Reactions Criticality Noted Date Comments Codeine Nausea And Vomiting Low 09/10/2017 Topiramate Other (See comments) Low 09/25/2023 Mood changes Medications albuterol HFA (PROVENTIL HFA,VENTOLIN HFA,PROAIR HFA) 90 mcg/actuation inhalerIndicati ons:Non-seasona l allergic rhinitis, unspecified trigger Inhale 2 puffs every 4 (four) hours as needed for wheezing or shortness of breath Use with spacer. Collaborating physician Dle Massey MD 1 each 1 05/16/20 24 025 Active cetirizine (ZyrTEC) 10 mg tabletIndicatio ns:Non-seasonal allergic rhinitis, unspecified trigger Take 1 tablet (10 mg total) by mouth daily 90 tablet 3 05/16/20 24 025 Active aspirin 81 mg enteric coated tabletIndicatio ns:Atherosclero sis of [place] coronary artery of [place] heart without angina pectoris Take 1 tablet (81 mg total) by mouth daily 90 tablet 06/10/20 24 025 Active atorvastatin (LIPITOR) 40 mg tabletIndicatio ns:Atherosclero sis of [place] coronary artery of [place] heart without angina pectoris Take 1 tablet (40 mg total) by mouth daily 90 tablet 06/10/20 24 025 Active famotidine (PEPCID) 40 mg tabletIndicatio ns:gastroesopha geal reflux disease Take 1 tablet (40 mg total) by mouth daily 30 tablet 3 08/16/20 24 Active rimegepant (NURTEC ODT) tablet,disinteg ratingIndicatio ns:Migraine Take 1 tablet (75 mg total) by mouth as needed (migraine headache) 9 tablet 11 11/28/19 25 Active rimegepant (NURTEC ODT) tablet,disinteg ratingIndicatio ns:Chronic migraine without aura without status migrainosus, not intractable Take 1 tablet (75 mg total) by mouth every other day 05/16/20 24 025 Discontinu ed(Reorder ) amoxicillin-cla vulanate (Augmentin) 875-125 mg per tabletIndicatio ns:Acute maxillary sinusitis, recurrence not specified Take 1 tablet by mouth 2 (two) times a day for 7 days 14 tablet 10/25/20 24 024 Active Problems Problem Noted Date Diagnosed Date Morbid obesity with BMI of 40.0-44.9, adult 11/09 S/P colonoscopy with polypectomy 04/15/2024 Atherosclerosis of [place] co ronary artery of [place] heart without angina pectoris 12/24/2023 Assessment & Plan (05/16/2024 3:15 PM CDT): Cardiac cath 09/2023 Follows with cardiology Continue Atorvastatin 40 mg daily and ASA 81 mg daily Labs ordered Chest pain 09/10/2023 Hematochezia 07/14/2023 Chronic migraine without aur a without status migrainosus, not intractable 04/27/2023 Assessment & Plan (05/16/2024 3:15 PM CDT): Chronic, stable, improving Follows with neurology Continue Nurtec 75 mg as needed Memory loss 04/27/2023 Assessment & Plan (05/16/2024 3:03 PM CDT): Improving Following with neurology Chronic cough 12/08/2022 Non-seasonal allergic rhinitis 11/05/2022 Nasal polyposis 07/02/2022 Assessment & Plan (10/08/2022 2:06 PM THEOLOGY PROFESSOR): Continue to work with Gun Stock Maker for Dupixent Assessment & Plan (08/08/2022 2:13 PM CDT): Medrol dose pack with a meal Continue to work with Gun Stock Maker for starting Dupixent Continue sinus rinse and Flonase Assessment & Plan (07/02/2022 12:03 PM CDT): May blow nose gently Sinus Rinse followed by Flonase 2 sprays into each nostril while looking down over the sink, do not sniff in or blow nose after use for at least 30 minutes twice daily Follow up in one month for recheck Continue Zyrtec daily Medrol dose pack with a meal Chronic maxillary sinusitis 04/28/2022 Assessment & Plan (07/02/2022 12:03 PM CDT): May blow nose gently Sinus Rinse followed by Flonase 2 sprays into each nostril while looking down over the sink, do not sniff in or blow nose after use for at least 30 minutes twice daily Follow up in one month for recheck Continue Zyrtec daily Medrol dose pack with a meal 06/17/22 PROCEDURE PERFORMED: Endoscopic bilateral Total Ethmoidectomy with tissue removal Endoscopic bilateral Maxillary Antrostomy with tissue removal Endoscopic bilateral Frontal Sinusotomy with tissue removal Endoscopic bilateral Sphenoidotomy with tissue removal Endoscopic bilateral nasal polypectomies Stealth Image guidance utilized Assessment & Plan (06/23/2022 10:06 AM CDT): Nasal saline as often as possible, Neti-pot in 24 hours Avoid nose blowing 06/17/22 PROCEDURE PERFORMED: Endoscopic bilateral Total Ethmoidectomy with tissue removal Endoscopic bilateral Maxillary Antrostomy with tissue removal Endoscopic bilateral Frontal Sinusotomy with tissue removal Endoscopic bilateral Sphenoidotomy with tissue removal Endoscopic bilateral nasal polypectomies Stealth Image guidance utilized Assessment & Plan (04/28/2022 2:38 PM CDT): Nasal saline spray (Simply saline, Little Remedies, [place], [place]) 2 second sprays or 2 squeezes into each nostril while looking down over the sink, do not need to sniff in. Followed by Flonase 2 sprays into each nostril while looking down over the sink, do not sniff in or blow nose after use for at least 30 minutes daily Aquaphor apply pea-size amount into each nostril with a cotton tipped applicator, being carefully just to tuck it into each nostril, then massage soft portion of the outer nose to massage the ointment around inside the nose twice daily Augmentin twice daily with a meal for [address] Sinus once done with Antibiotics - Please have face covering completely off face for imaging Will obtain records from Dr. Fatima's Office Oropharyngeal dysphagia 11/18/2021 Assessment & Plan (05/16/2024 3:14 PM CDT): Chronic, generally well controlled Follows with ENT Continue Famotidine 40 mg nightly Assessment & Plan (11/18/2021 2:02 PM THEOLOGY PROFESSOR): Augmentin with a meal twice daily, Probiotic at a different meal 4 hours in between, Nasal saline spray (Simply saline, Little Remedies, [place], [place]) 2 second sprays or 2 squeezes into each nostril while looking down over the sink, do not need to sniff in daily Flonase 2 sprays into each nostril while looking down over the sink, do not sniff in or blow nose after use for at least 30 minutes daily Increase Pepcid to 40 mg at bedtime Call if no improvement in 4-6 weeks Brain fog 10/24/2021 Tobacco use 11/24/2018 Resolved Problems Problem Noted Date Diagnosed Date Resolved Date Chest pain, unspecified type 09/10/2023 05/16/2024 Encounter for screening colonoscopy 07/14/2023 05/16/2024 Seasonal allergic rhinitis due to pollen 04/28/2022 05/16/2024 Assessment & Plan (06/15/2023 9:51 AM CDT): Continue sinus rinse Followed by Astelin (azelastine) 2 sprays into each nostril while looking down over the sink, do not sniff in or blow nose after use for at least 30 minutes twice daily Continue Cetirizine daily Have vision checked Personal interpretation of MRI Brain: mild ethmoid mucosal thickening on the right, right maxillary sinus mucosal thickening without obstruction, otherwise clear Assessment & Plan (04/28/2022 2:40 PM CDT): Nasal saline spray (Simply saline, Little Remedies, [place], [place]) 2 second sprays or 2 squeezes into each nostril while looking down over the sink, do not need to sniff in. Followed by Flonase 2 sprays into each nostril while looking down over the sink, do not sniff in or blow nose after use for at least 30 minutes daily Aquaphor apply pea-size amount into each nostril with a cotton tipped applicator, being carefully just to tuck it into each nostril, then massage soft portion of the outer nose to massage the ointment around inside the nose twice daily Augmentin twice daily with a meal for [address] Sinus once done with Antibiotics - Please have face covering completely off face for imaging Will obtain records from Dr. Fatima's Office Right maxillary sinusitis 11/18/2021 Assessment & Plan (10/08/2022 2:06 PM THEOLOGY PROFESSOR): Continue to work with Gun Stock Maker for Dupixent Assessment & Plan (11/18/2021 2:02 PM THEOLOGY PROFESSOR): Augmentin with a meal twice daily, Probiotic at a different meal 4 hours in between, Nasal saline spray (Simply saline, [place], [place], [place]) 2 second sprays or 2 squeezes into each nostril while looking down over the sink, do not need to sniff in daily Flonase 2 sprays into each nostril while looking down over the sink, do not sniff in or blow nose after use for at least 30 minutes daily Increase Pepcid to 40 mg at bedtime Call if no improvement in 4-6 weeks Laryngeal spasm 11/18/2021 05/16/2024 Assessment & Plan (11/18/2021 2:02 PM THEOLOGY PROFESSOR): Augmentin with a meal twice daily, Probiotic at a different meal 4 hours in between, Nasal saline spray (Simply saline, [place], [place], [place]) 2 second sprays or 2 squeezes into each nostril while looking down over the sink, do not need to sniff in daily Flonase 2 sprays into each nostril while looking down over the sink, do not sniff in or blow nose after use for at least 30 minutes daily Increase Pepcid to 40 mg at bedtime Call if no improvement in 4-6 weeks Post covid-19 condition, unspecified 10/24/2021 05/16/2024 Overview (10/24/2021): - symptoms significantly improved since last follow up - continue OT and ROPE LAYING MACHINE OPERATOR exercises at home - reviewed pacing - trial tessalon perls for cough - encouraged sleep study to r/o JAZMÍN and related GERD - reviewed sleep hygiene and discussed supplements - follow up with PCP for any symptom flares Pneumonia 07/21/2021 05/16/2024 Acute bronchospasm 07/21/2021 History of COVID-19 07/21/2021 05/16/20 Chest wall pain 07/21/2021 05/16/2024 Pleurisy 07/21/2021 05/16/2024 Dizziness 10/26/2017 05/16/2024 Dysfunction of both eustachian tubes 10/26/2017 05/16/2024 Immunizations Name Administration Dates Next Due Hep A, Adult 05/31/2001,06/19/2000 IPV 06/19/2000 Influenza LAIV (Nasal) 10/07/2007,2005,09/11/2005,12/03 Influenza, Quadrivalent, Spl it, Preservative Free, Intramuscular 09/11/2023,09/25/2022,09/21/2021 Influenza, Trivalent, IM (MDV) ,08/22/2003,09/12/2002,09/16,10/15/2000 Influenza, Trivalent, Preser vative Free, Intramuscular 08/18/2024 MMR 06/19/2000 Meningococcal ACWY, Unspecified 06/12/2000 Meningococcal Polysaccharide (Menomune) 06/12/2000 Moderna SARS-CoV-2 Monovalen t Vaccination (12+ YRS) 08/02/2021 Novavax COVID-19 5MCG/0.5ML Vaccine 08/12/2024 Pfizer SARS-CoV-2 Monovalent Vaccination (12+ Yrs) PURPLE 10/09/2023 Td, adsorbed 06/12/2000 Tdap 05/14/2024,09/28/2018 Typhoid H-P SQ/ID 05/31/2001 Typhoid Inactivated 10/10/2003 Typhoid Live 10/10/2003,05/31/2001 Yellow Fever 04/05/2002 Social History Tobacco Use Types Packs/Day Years Used Date Smoking Tobacco: Former Pipe Q uit: 2021 Smokeless Tobacco: Never Tobacco Cessation:Counseling Given: Not Answered Comments:I quit smoking. I haven't had tobacco in a year. Alcohol Use Standard Drinks/Week Comments Not Currently 0 (1 standard drink = 0.6 oz pur e alcohol) [facility] Utilities Answer Date Recorded In the past 12 months has th e electric, gas, oil, or water company threatened to shut off services in your home? No 05/16/2024 Humiliation, Afraid, Rape, and Kick questionnair e Answer Date Recorded Within the last year, have y ou been afraid of your partner or ex-partner? No 05/16/2024 Within the last year, have y ou been humiliated or emotionally abused in other ways by your partner or ex-partner? No Within the last year, have y ou been kicked, hit, slapped, or otherwise physically hurt by your partner or ex-partner? No 05/16/2024 Within the last year, have y ou been raped or forced to have any kind of sexual activity by your partner or ex-partner? No 05/16/2024 Social Connection and Isolat ion Panel [NHANES] Answer Date Recorded In a typical week, how many times do you talk on the phone with family, friends, or neighbors? More than three times a week 05/16/2024 How often do you get togethe r with friends or relatives? More than three times a week 05/16/2024 How often do you attend chur ch or holiness services? Never 05/16/2024 Do you belong to any clubs o r organizations such as spiritism groups, unions, fraternal or athletic groups, or school groups? Yes 05/16/2024 How often do you attend meet ings of the clubs or organizations you belong to? Never 05/16/2024 Are you , , di vorced, , never , or living with a partner? 05/16/2024 AUDIT-C Answer Date Recorded Q1: How often do you have a drink containing alc ohol? Monthly or less 06/28/2024 Q2: How many drinks containi ng alcohol do you have on a typical day when you are drinking? 1 or 2 06/28/2024 Q3: How often do you have si x or more drinks on one occasion? Never 06/28/2024 Overall Financial Resource Strain (CARDIA) Answe r Date Recorded How hard is it for you to pa y for the very basics like food, housing, medical care, and heating? Not hard at all 05/16/2024 PHQ-2 Answer Date Recorded PHQ-2 Total Score (If total score is 3 or more points, staff should administer the PHQ-9) 0 05/16/2024 [facility]ational Stress Questionnaire Answer Date Recorded Do you feel stress - tense, restless, nervous, or anxious, or unable to sleep at night because your mind is troubled all the time - these days? To some extent 05/16/2024 Exercise Vital Sign Answer Date Recorde d On average, how many days pe r week do you engage in moderate to strenuous exercise (like a brisk walk)? 5 days 05/16/2024 On average, how many minutes do you engage in exercise at this level? 90 min 05/16/2024 Hunger Vital Sign Answer Date Recorded Within the past 12 months, y ou worried that your food would run out before you got the money to buy more. Never true 05/16/20 24 Within the past 12 months, t he food you bought just didn't last and you didn't have money to get more. Never true 05/16/2024 PRAPARE - Transportation Answer Date Re corded In the past 12 months, has l ack of transportation kept you from medical appointments or from getting medications? No 06/2024 In the past 12 months, has l ack of transportation kept you from meetings, work, or from getting things needed for daily living? No 05/16/2024 Housing Stability Vital Sign Answer Mert e Recorded In the last 12 months, was t here a time when you were not able to pay the mortgage or rent on time? No 09/10/2023 In the last 12 months, how many places have you lived? 1 09/10/2023 In the last 12 months, was t here a time when you did not have a steady place to sleep or slept in a group home (including now)? No 09/10/2023 Housing Stability Vital Sign Answer Mert e Recorded In the last 12 months, was t here a time when you were not able to pay the mortgage or rent on time? No 05/16/2024 In the past 12 months, how m any times have you moved where you were living? 0 05/16/2024 At any time in the past 12 m [facility], were you homeless or living in a group home (including now)? No 05/16/2024 Personal Safety Answer Date Recorded Have you ever been in or are you currently in a harmful physical or emotional relationship or is someone making you feel afraid or unsafe? Denies 06/28/2024 Education Answer Date Recorded What is the highest level of school you have completed or the highest degree you have received? High school graduate 09/10/2023 Sex and Gender Information Value Date Recorded Sex Assigned at Not on file Legal Sex Male 1:23 AM THEOLOGY PROFESSOR Gender Identity Male 11/13/2021 12:52 PM THEOLOGY PROFESSOR Sexual Orientation Straight 11/13/2021 12 :52 PM THEOLOGY PROFESSOR Last Filed Vital Signs Vital Sign Reading Time Taken Comments Blood Pressure 148/92 11/28/2024 1:12 PM THEOLOGY PROFESSOR Pulse 106 11/28/2024 1:12 PM THEOLOGY PROFESSOR Temperature 36.3 ??C (97.4 ??F) 10/25/2024 7:29 PM CS T Respiratory Rate 19 10/25/2024 7:29 PM THEOLOGY PROFESSOR Oxygen Saturation 99% 11/28/2024 1:12 PM THEOLOGY PROFESSOR Inhaled Oxygen Concentration - - Weight 117.3 kg (258 lb 9.6 oz) 11/28/2024 1:12 PM THEOLOGY PROFESSOR Height 170.2 cm (5' 7.01 ) 11/28/2024 1:12 PM CS T Body Mass Index 40.49 11/28/2024 1:12 PM THEOLOGY PROFESSOR Plan of Treatment Not on file Medical Devices Implanted Type Area Data Analyst Etl Developer Device Identifier Shelf Expiration Date Model / Serial / Lot [employer] Angio-Seal Vip 6fr Closere Device [id number] - [id number] Implanted:Qty: 1 on 09/11/2023 by Lamberto Justice MD at [facility] Other - see comments [employer] 03/22/2024 [id number] / / [id number] Procedures Procedure Name Priority Date/Time Associated Diagnosis Comments POCT RAPID STREP Routine 10/25/2024 7:50 PM THEOLOGY PROFESSOR Acute maxillary sinusitis, recurrence not specified POCT INFLUENZA A/B Routine 10/25/2024 7: 50 PM THEOLOGY PROFESSOR Acute maxillary sinusitis, recurrence not specified COVID-19 POC Routine 10/25/2024 7:50 PM THEOLOGY PROFESSOR Acute maxillary sinusitis, recurrence not specified HEPATITIS C ANTIBODY Routine 05/16/2024 3:23 PM CDT Encounter for hepatitis C screening test for low risk patient from Last 3 Months or Most Recently Relevant to Health Maintenance Results * COVID-19 POC (10/25/2024 7:50 PM THEOLOGY PROFESSOR) [facility] COVID-19 Ag POC (BD Veritor) Presumptive Negative Presumptive Negative, Invalid [facility] Nasal 10/25/2024 7:50 PM THEOLOGY PROFESSOR Holly Mota PLATE PRINTER POINT OF CARE TEST ORDERABLES Fi nal Result [facility] [address] [place] [address], [facility] * POCT influenza A/B (10/25/2024 7:50 PM THEOLOGY PROFESSOR) [facility] Rapid Influenza A Ag Negative Negative, Invalid Rapid Influenza B Ag Negative Negative, Invalid Nasal 10/25/2024 7:50 PM THEOLOGY PROFESSOR us Holly Mota PLATE PRINTER POINT OF CARE TEST ORDERABLES Fi nal Result * POCT rapid strep A (10/25/2024 7:50 PM THEOLOGY PROFESSOR) [facility] Rapid Strep A, POC Negative Negative Swab 10/25/2024 7:50 PM THEOLOGY PROFESSOR us Holly Mota PLATE PRINTER POINT OF CARE TEST ORDERABLES Fi nal Result * Hepatitis C antibody Blood (05/16/2024 3:23 PM CDT) [facility] Hep C Ab Nonreactive Nonreactive Comment: Interpretive Data Nonreactive: Antibodies to HCV not detected. Does NOT exclude the possibility of recent exposure to HCV. Equivocal: Equivocal for HCV antibodies. Supplemental molecular testing will be automatically performed to determine infection status in accordance with current CDC screening recommendations. ?? Reactive: Positive for HCV antibodies. ??This may represent current or past HCV infection. Supplemental molecular testing will be automatically performed to determine ??current infection status in accordance with current CDC screening recommendations. Interpretive data was last revised on 2020. Testing performed by: [facility], [address] [place] [address], [place]., [address] Blood 05/16/2024 3:23 PM CDT 05/16/2024 8:18 PM CDT Jenny Caban NP LAB MICROBIOLOGY - GENERAL ORDER FRANCIA Final Result [facility] [address] [facility] Department [place] [address] from Last 3 Months or Most Recently Relevant to Health Maintenance Insurance [email or web address]LEGIANCE [email or web address] Advance Directives For more information, please contact: [phone] * Full Code (Latest Code Status on File) Date Activated Date Inactivated Comments 06/28/2024 6:20 AM 06/28/2024 12:35 PM * Full Code Date Activated Date Inactivated Comments 12/23/2023 10:43 AM 12/23/2023 6:19 PM * Full Code Date Activated Date Inactivated Comments 10/28/2023 8:43 AM 10/28/2023 4:50 PM * Full Code Date Activated Date Inactivated Comments 10/28/2023 8:43 AM 10/28/2023 8:43 AM * Full Code Date Activated Date Inactivated Comments 09/10/2023 7:25 AM 09/11/2023 5:13 PM Care Teams Director Of Acquisition Marketing Relationship Specialty Start Date End Date Jenny Caban NP PCP - General Family Medicine 05/16/24 Indiana Sánchez, OT Occupational Therapist Occupational Therapy 08/12/21
--- OUTSIDE RECORDS SUMMARY | 2024-12-01 15:53 | XMS_ITS | Clinical Summary ---
Author Organization [facility] Address [address] [place] [address] Phone Care Team Providers Care Supervisor Word Processing Name Role Phone Provider, None Primary Care Provider Unavailabl e Allergies Active Allergy Reactions Criticality Noted Date Comments Morphine And Codeine Other (see Comments) 05/31 Patient states I go into shock. Medications ibuprofen 600 MG PO TABS Take 1 Tab by mouth every 8 hours. 270 Tab 3 05/31/2013 Active HYDROcodone-acet aminophen 5-325 MG PO TABS Take 1-2 Tabs by mouth every 4 hours as needed for Pain. 20 Tab 0 05/31/2013 Active Social History Tobacco Use Types Packs/Day Years Used Date Smoking Tobacco: Passive Smo ke Exposure - Never Smoker Alcohol Use Standard Drinks/Week Comments Yes 0.8 (1 standard drink = 0.6 oz p ure alcohol) Sex and Gender Information Value Date Recorded Sex Assigned at Not on file Legal Sex Male 1:23 PM CDT Gender Identity Not on file Sexual Orientation Not on file Last Filed Vital Signs Vital Sign Reading Time Taken Comments Blood Pressure 125/67 05/31/2013 3:45 PM CDT Pulse 77 05/31/2013 3:45 PM CDT Temperature 37.1 ??C (98.8 ??F) 05/31/2013 1:25 PM CD T Respiratory Rate 16 05/31/2013 3:45 PM CDT Oxygen Saturation 98% 05/31/2013 1:25 PM CDT Inhaled Oxygen Concentration - - Weight 99.8 kg (220 lb) 05/31/2013 1:25 PM CDT Height 170.2 cm (5' 7 ) 05/31/2013 1:25 PM CDT Body Mass Index 34.46 05/31/2013 1:25 PM CDT Plan of Treatment Not on file Insurance [facility] Care Teams Supervisor Word Processing Relationship Specialty Start Date End Date Provider, None [place] PCP - General 05/31/13
--- OUTSIDE RECORDS SUMMARY | 2024-12-01 15:53 | XMS_ITS | Encounter Summary ---
Author Organization [facility] Healthcare Address [address] [place] [address] Care Team Providers Care Coal Drier Operator Name Role Phone Indiana Sánchez OT Unavailable Unavailable Jenny Caban CO FOUNDER AND CEO Primary Care Provider [phone] Encounter Details Date Type Department Care Team (Late st Contact Info) Description 11/28/2024 1:30 PM SENIOR ENGINEERING MANAGER Office [place] [facility] [address] [place] [address] [address] [place] [address] Angy Frank, CO FOUNDER AND CEO [address] [place] [address] [address] [place] [address] Memory loss (Primary Dx); Chronic migraine without aura without status migrainosus, not intractable; Brain fog Social History Tobacco Use Types Packs/Day Years Used Date Smoking Tobacco: Former Pipe Q uit: 2021 Smokeless Tobacco: Never Comments:I quit smoking. I h aven't had tobacco in a year. Alcohol Use Standard Drinks/Week Comments Not Currently 0 (1 standard drink = 0.6 oz pur e alcohol) [facility] Utilities Answer Date Recorded In the past 12 months has e electric, gas, oil, or water company [...] often do you attend chur ch or worship services? Never 05/16/2024 Do you belong to any clubs o r organizations such as jehovah's witness groups, unions, fraternal or athletic groups, or [...] staff should administer the PHQ-9) 0 05/16/2024 [facility] Occupat [facility] - Occupational Stress Questionnaire Answer [...] place to sleep or slept in a snf (including now)? No 09/10/2023 Housing Stability Vital Sign Answer Mert e Recorded In the last 12 months, was t here a time when you were not able to pay the mortgage or rent on time? No 05/16/2024 In the past 12 months, how m any times have you moved where you were living? 0 05/16/2024 At any time in the past 12 m [facility], were you homeless or living in a snf (including now)? No 05/16/2024 Personal Safety Answer [...] on file Legal Sex Male 1:23 AM SENIOR ENGINEERING MANAGER Gender Identity Male 11/13/2021 12:52 PM SENIOR ENGINEERING MANAGER Sexual Orientation Straight 11/13/2021 12 :52 PM SENIOR ENGINEERING MANAGER documented as of this encounter Last Filed Vital Signs Vital Sign Reading Time Taken Comments Blood Pressure 148/92 11/28/2024 1:12 PM SENIOR ENGINEERING MANAGER Pulse 106 11/28/2024 1:12 PM SENIOR ENGINEERING MANAGER Temperature - - Respiratory Rate - - Oxygen Saturation 99% 11/28/2024 1:12 PM SENIOR ENGINEERING MANAGER Inhaled Oxygen Concentration - - Weight 117.3 kg (258 lb 9.6 oz) 11/28/2024 1:12 PM SENIOR ENGINEERING MANAGER Height 170.2 cm (5' 7.01 ) 11/28/2024 1:12 PM CS T Body Mass Index 40.49 11/28/2024 1:12 PM SENIOR ENGINEERING MANAGER documented in this encounter Ordered Prescriptions Prescription Sig Dispense Quantity Refills Last Filled Start Date End Date rimegepant (NURTEC ODT) tablet,disintegrati ngIndications:Migra ine Take 1 tablet (75 mg total) by mouth as needed (migraine headache) 9 tablet 11 11/28/2024 documented in this encounter Progress Notes * Angy Frank, CO FOUNDER AND CEO - 11/28/2024 1:30 PM CST Subjective/Objective Patient ID: Vikas Peña is a 44 y.o. male. Chief Complaint I am seeing this 44 y.o. male in consultation requested by Dr. Mahamed Galeano, * for headache and memory loss. HPI Headache: For details, see 04/27/2023 note. Since last visit on 12/09/2023, patient has been on Nurtec 75mg daily PRN. It works when he needs it. Reports 3-4 headache days per month on his worst month. Some months as little as 0. Patient had ???outbursts?? with Topamax. It was stopped. Her headache is better. He stopped Amitriptyline. It caused visual disturbance. He saw yellow color that was not there and blurring vision. Did not want to take Aimovig due to concern for side effect. Memory loss: For details, see 04/27/2023 note. Memory is better since last visit. He is taking Vitamin B12 500 microgram a day and Vitamin B6 12.5mg every day. Last MOCA was normal. Past Medical History: Diagnosis Date Arrhythmia Asthma Colon polyp GERD (gastroesophageal reflux disease) Heart disease Hypertension pt repotrs that he does not take BP medicaiton and was not told he needs to due to low BP's Laryngeal spasm 11/18/2021 Motion sickness Pneumonia due to COVID-19 virus 05/2021 PONV (postoperative nausea and vomiting) Post covid-19 condition, unspecified 10/24/2021 - symptoms significantly improved since last follow up - continue OT and RESIDENTIAL TREATMENT STAFF exercises at home - reviewed pacing - trial tescamden orona for cough - encouraged sleep study to r/o JAZMÍN and related GERD - reviewed sleep hygiene and discussed supplements - follow up with PCP for any symptom flares Allergies Allergen Reactions Codeine Nausea And Vomiting Topiramate Other (See comments) Mood changes Current Outpatient Medications Medication Sig Dispense Refill albuterol HFA (PROVENTIL HFA,VENTOLIN HFA,PROAIR HFA) 90 mcg/actuation inhaler Inhale 2 puffs every4 (four) hours as needed for wheezing or shortness of breath Use with spacer. Collaborating physician Del Massey MD 1 each 1 aspirin 81 mg enteric coated tablet Take 1 tablet (81 mg total) by mouth daily 90 tablet 0 atorvastatin (LIPITOR) 40 mg tablet Take 1 tablet (40 mg total) by mouth daily 90 tablet 0 cetirizine (ZyrTEC) 10 mg tablet Take 1 tablet (10 mg total) by mouth daily 90 tablet 3 famotidine (PEPCID) 40 mg tablet Take 1 tablet (40 mg total) by mouth daily 30 tablet 3 rimegepant (NURTEC ODT) tablet,disintegrating Take 1 tablet (75 mg total) by mouth every other day (Patient taking differently: Take 1 tablet (75 mg total) by mouth as needed) No current facility-administered medications for this visit. has a current medication list which includes the following prescription(s): albuterol hfa, aspirin,atorvastatin, cetirizine, famotidine, and rimegepant. Family History Problem Relation Age of Onset Diabetes Mother Osteoporosis Mother Obesity Mother Diabetes Father Hypertension Father Cancer Maternal Grandfather Heart attack Maternal Grandfather Heart disease Maternal Grandfather Diabetes Paternal Grandfather Hypertension Paternal Grandfather Obesity Paternal Grandfather Diabetes Paternal Grandmother Hypertension Paternal Grandmother Obesity Paternal Grandmother Allergy (severe) Son Asthma Son Developmental delay Son Learning disabilities Son Rashes / Skin problems Son Developmental delay Father's Brother Obesity Mother's Sister Social History Tobacco Use Smoking status: Former Types: Pipe Quit date: 2021 Years since quittin.0 Smokeless tobacco: Never Tobacco comments: I quit smoking. I haven't had tobacco in a year. Substance and Sexual Activity Drug use: Never Types: Alcohol Comment: 8 oz to pint once a week Sexual activity: Yes Partners: Female control/protection: Condom Male Alcohol Use: Not At Risk (06/28/2024) AUDIT-C Frequency of Alcohol Consumption: Monthly or less Average Number of Drinks: 1 or 2 Frequency of Binge Drinking: Never BP 148/92 Pulse 106 Ht 170.2 cm (5' 7.01 ) Wt 117.3 kg (258 lb 9.6 oz) SpO2 99% BMI 40.49kg/m?? Physical Exam Mental status: alert, speech fluent, comprehension intact, follow command appropriately Cranial nerve: NADIR, corneal reflex present. EOMI, VFF by confrontation method. Facial sensations symmetrical. Face symmetrical. Motor: bulk normal, tone normal, pronator drift negative. Strength 5/5. No abnormal movement. Sensation: LT Normal and symmetrical. Gait:normal Assessment/Plan I am seeing this 43 y.o. male in consultation requested by Dr. Leslie Lin MD for headache and memory loss. Headache: Consistent with chronic migraine headache. Patient did not take topiramate since last visit because he has to take wine. Topamax caused nightmare and tingling numbness of hands, as well as outburst. Amitriptyline caused visual disturbance. He refused Aimovig because of fear of side effect. He responded to Nurtec. Memory loss: 12/09/2023 Closplint cognitive assessment 30 (visuospatial/executive -1, delayed recall -1). Dementia is unlikely. MRI was unremarkable. CSF Alzheimer's dementia biomarker was negative.Psychogenic overlay is in the differential diagnosis. Diagnoses and all orders for this visit: Chronic migraine without aura without status migrainosus, not intractable (Primary) - continue Nurtec 75 mg once a day p.r.n. - Intermittent FMLA paperwork completed today Memory loss - vitamin B6 12.5 mg daily - vitamin B12 500 mcg daily - Monitor Past investigations: 1. 05/21/2023 MRI of the brain without: No acute intracranial process. No evidence of hydrocephalus.No significant white matter disease. I reviewed the image. 2. 04/27/2020 vitamin-B 6 9 (5-50 mcg/L). Folic acid 13.4. 06/26/2022 TSH normal. T4 1.3. 06/26/2022 vitamin B12 269. 3. 04/27/2023 Shai cognitive assessment (attention -2, language -2, delayed recall -3). 4. Closplint cognitive assessment (visuospatial/executive -1, delayed recall -1) My total encounter time on 11/28/2024 was 30 minutes which was spent in the activities documented inthe note. This includes time spent prior to the visit and after the visit in direct care of the patient. This time does not include time spent in any separately reportable services. No follow-ups on file. OR ENGINEERING MANAGER documented in this encounter Plan of Treatment Not on file documented as of this encounter Visit Diagnoses Diagnosis Memory loss- Primary Chronic migraine without aura without status migrainosus, not intractable Brain fog documented in this encounter Discontinued Medications Medication Sig Discontinue Reason Start Date End Da te rimegepant (NURTEC ODT) tablet,disintegratingIndi cations:Chronic migraine without aura without status migrainosus, not intractable Take 1 tablet (75 mg total) by mouth every other day Reorder 05/16/2024 11/28/2024 documented as of this encounter Care Teams Coal Drier Operator Relationship Specialty Start Date End Date Jenny Caban NP PCP - General Family Medicine 05/16/24 Indiana Sánchez, OT Occupational Therapist Occupational Therapy 08/12/21 documented as of this encounter
--- OUTSIDE RECORDS SUMMARY | 2024-12-01 15:53 | XMS_ITS | Clinical Summary ---
Author Organization [facility] Address [address] [place] [address] Care Team Providers Care Internet And E Business Project Manager Name Role Phone Indiana Sánchez OT Unavailable Unavailable Jenny Caban NP Primary Care Provider [phone] Allergies Active Allergy Reactions Criticality Noted Date [...] physician Del Massey MD 1 each 1 05/16/20 24 025 Active cetirizine (ZyrTEC) 10 mg tabletIndicatio ns:Non-seasonal allergic rhinitis, unspecified trigger Take 1 tablet (10 mg total) by mouth daily 90 tablet 3 05/16/20 24 025 Active aspirin 81 mg enteric coated tabletIndicatio ns:Atherosclero sis of [place] coronary artery of [place] heart without angina pectoris Take 1 tablet (81 mg total) by mouth daily 90 tablet 06/10/20 24 025 Active atorvastatin (LIPITOR) 40 mg tabletIndicatio ns:Atherosclero sis of [place] coronary artery of [place] heart without angina pectoris Take 1 tablet [...] S/P colonoscopy with polypectomy 04/15/2024 Atherosclerosis of [place] co ronary artery of [place] heart without angina pectoris 12/24/2023 Assessment & [...] 07/02/2022 Assessment & Plan (10/08/2022 2:06 PM XM1 TANK DRIVER): Continue to work with Cargo Inspector for Dupixent Assessment & Plan (08/08/2022 2:13 PM CDT): Medrol dose pack with a meal Continue to work with Cargo Inspector for starting Dupixent Continue sinus rinse and [...] Nasal saline spray (Simply saline, Little Remedies, [place], [place]) 2 second sprays or 2 squeezes into [...] nightly Assessment & Plan (11/18/2021 2:02 PM XM1 TANK DRIVER): Augmentin with a meal twice daily, Probiotic at a different meal 4 hours in between, Nasal saline spray (Simply saline, Little Remedies, [place], [place]) 2 second sprays or 2 squeezes into [...] Nasal saline spray (Simply saline, Little Remedies, [place], [place]) 2 second sprays or 2 squeezes into [...] 11/18/2021 Assessment & Plan (10/08/2022 2:06 PM XM1 TANK DRIVER): Continue to work with Cargo Inspector for Dupixent Assessment & Plan (11/18/2021 2:02 PM XM1 TANK DRIVER): Augmentin with a meal twice daily, Probiotic at a different meal 4 hours in between, Nasal saline spray (Simply saline, Little Remedies, [place], [place]) 2 second sprays or 2 squeezes into [...] 05/16/2024 Assessment & Plan (11/18/2021 2:02 PM XM1 TANK DRIVER): Augmentin with a meal twice daily, Probiotic at a different meal 4 hours in between, Nasal saline spray (Simply saline, Little Remedies, [place], [place]) 2 second sprays or 2 squeezes into [...] last follow up - continue OT and HEALTH UNIT SUPERVISOR exercises at home - reviewed pacing - trial tessalon perls for cough - encouraged sleep study to r/o JAZMÍN and related GERD - reviewed sleep hygiene and discussed supplements - follow up with PCP for any symptom flares Pneumonia 07/21/2021 05/16/2024 Acute bronchospasm 07/21/2021 History of COVID-19 07/21/2021 05/16/20 24 Chest wall pain 07/21/2021 05/16/2024 Pleurisy 07/21/2021 05/16/2024 Dizziness 10/26/2017 05/16/2024 Dysfunction of both eustachian tubes 10/26/2017 05/16/2024 Encounters Date Type Department Care Team Description 11/28/2024 1:30 PM XM1 TANK DRIVER Office Visit [facility] [address] [place] [address] [address] [address] Angy Frank NP Memory loss (Primary Dx); Chronic migraine without aura without status migrainosus, not intractable; Brain fog 10/25/2024 7:45 PM XM1 TANK DRIVER Office Visit [facility] at [address] [place] [address] Holly Mota NP Acute maxillary sinusitis, recurrence not specified (Primary Dx) 10/13/2024 1:15 PM XM1 TANK DRIVER [facility] Visit [facility] [address] [address] Cornelius Lennon MD Disorder of nail coloration (Primary Dx); Morbid obesity with BMI of 40.0-44.9, adult (HCC) from Last 3 Months Immunizations Name Administration Dates Next Due Hep [...] 10/10/2003 Typhoid Live 10/10/2003,05/31/2001 Yellow Fever 04/05/2002 Surgical History Surgery Date Site/Laterality Comments APPENDECTOMY 11/09/2011 - 11/08/2012 WISDOM TOOTH EXTRACTION SINUS SURGERY balloon sinuplasty 2017 SINUS SURGERY 11/09/2021 - 11/08/2022 FL FLUORO GUIDED LUMBAR PUNCTURE 06/26/2023 Right COLONOSCOPY 11/09/2004 - 11/08/2005 POLYPECTOMY Medical History Medical History Date Comments Hypertension pt repotrs that he does not take BP medicaiton and was not told he needs to due to low BP's Arrhythmia PONV (postoperative nausea a nd vomiting) Motion sickness Pneumonia due to COVID-19 virus 05/2021 Asthma GERD (gastroesophageal reflu x disease) Heart disease Post covid-19 condition, unspecified 10/24/2021 - symptoms significantly improved since last follow up - continue OT and HEALTH UNIT SUPERVISOR exercises at home - reviewed pacing - trial ping orona for cough - encouraged sleep study to r/o JAZMÍN and related GERD - reviewed sleep hygiene and discussed supplements - follow up with PCP for any symptom flares Laryngeal spasm 11/18/2021 Colon polyp Family History Medical History Relation Name Comments Diabetes Father Jerome Peña Hypertension Father Jerome Peña Developmental delay Father's Brother Mo Peña Cancer Maternal Grandfather Abdirahman Holder Heart attack Maternal Grandfather Abdirahman Holder Heart disease Maternal Grandfather Abdirahman Holder Diabetes Mother Pat Dee Obesity Mother Pat Dee Osteoporosis Mother Pat Dee Obesity Mother's Sister Nneka Ramseye Diabetes Paternal Grandfather Vikas [place]ade[place] Hypertension Paternal Grandfather Vikas [place] Obesity Paternal Grandfather Vikas [place] Diabetes Paternal Grandmother Sejal [place]ade[place] Hypertension Paternal Grandmother Sejal [place]ade[place] Obesity Paternal Grandmother Sejal [place] Allergy (severe) Son Jose Peña Asthma Son Jose C[place] Developmental delay Son Jose [place] Learning disabilities Son Jose Bordenield Rashes / Skin problems Son Jose Bordenield Relation Name Status Comments Father Jerome Peña Father's Brother Mo Peña Maternal Grandfather Abdirahman Holder Mother Pat Leila Mother's Sister Nneka Ramseye Paternal Grandfather Vikas Bordenield Paternal Grandmother Sejal Bordenield Son Jose Peña Social History Tobacco Use Types Packs/Day Years Used Date Smoking Tobacco: Former Pipe Q uit: 2021 Smokeless Tobacco: Never Tobacco Cessation:Counseling Given: Not Answered Comments:I quit smoking. I haven't had tobacco in a year. Alcohol Use Standard Drinks/Week Comments Not Currently 0 (1 standard drink = 0.6 oz pur e alcohol) [facility] Utilities Answer Date Recorded In the past 12 months has e [employer], gas, oil, or water [employer] threatened to shut off services in your [...] 05/16/2024 How often do you attend chur or congregational services? Never 05/16/2024 Do you belong to any clubs o r organizations such as moravian groups, unions, fraternal or athletic groups, or [...] staff should administer the PHQ-9) 0 05/16/2024 [facility] of Occupat ional Health - Occupational Stress [...] place to sleep or slept in a senior living (including now)? No 09/10/2023 Housing Stability Vital Sign Answer Mert e Recorded In the last 12 months, was t here a time when you were not able to pay the mortgage or rent on time? No 05/16/2024 In the past 12 months, how m any times have you moved where you were living? 0 05/16/2024 At any time in the past 12 m [facility], were you homeless or living in a senior living (including now)? No 05/16/2024 Personal Safety Answer [...] on file Legal Sex Male 1:23 AM XM1 TANK DRIVER Gender Identity Male 11/13/2021 12:52 PM XM1 TANK DRIVER Sexual Orientation Straight 11/13/2021 12 :52 PM XM1 TANK DRIVER Obstetrics History Last Filed Vital Signs Vital Sign Reading Time Taken Comments Blood Pressure 148/92 11/28/2024 1:12 PM XM1 TANK DRIVER Pulse 106 11/28/2024 1:12 PM XM1 TANK DRIVER Temperature 36.3 ??C (97.4 ??F) 10/25/2024 7:29 PM CS T Respiratory Rate 19 10/25/2024 7:29 PM XM1 TANK DRIVER Oxygen Saturation 99% 11/28/2024 1:12 PM XM1 TANK DRIVER Inhaled Oxygen Concentration - - Weight 117.3 kg (258 lb 9.6 oz) 11/28/2024 1:12 PM XM1 TANK DRIVER Height 170.2 cm (5' 7.01 ) 11/28/2024 1:12 PM CS T Body Mass Index 40.49 11/28/2024 1:12 PM XM1 TANK DRIVER Plan of Treatment Health Maintenance Due Date Last Done Comments Regular Well Visit/Exam 18-64 1998 Depression Screening 05/16/2025 05/16/2024 DTaP/Tdap/Td Vaccine (3 - Td or Tdap) 05/14/2034 05/14/2024, 09/28/2018, 06/12/2000 Hepatitis B Screening Completed 05/16/2024 Hepatitis C Screening Completed 05/16/2024 Covid-19 Vaccine Completed 08/12/2024, 11/2022, 10/09/2023, Additional history exists Influenza Vaccine Completed 08/18/2024, , 09/25/2022, Additional history exists HPV Vaccines Aged Out No longer eligi ble based on patient's age to complete this topic Pneumococcal vaccine <65 Aged Out No longer eligible based on patient's age to complete this topic Varicella Vaccines Discontinued Medical Devices Implanted Type Area Brush Fabrication Supervisor Device Identifier Shelf Expiration Date Model / Serial / Lot [employer] Angio-Seal Vip 6fr Closere Device [id number] - [id number] Implanted:Qty: 1 on 09/11/2023 by Lamberto Justice MD at [facility] Other - see comments [employer] Alan 03/22/2024 [id number] / / [id number] Procedures Procedure Name Priority Date/Time Associated Diagnosis Comments POCT RAPID STREP Routine 10/25/2024 7:50 PM XM1 TANK DRIVER Acute maxillary sinusitis, recurrence not specified POCT INFLUENZA A/B Routine 10/25/2024 7: 50 PM XM1 TANK DRIVER Acute maxillary sinusitis, recurrence not specified COVID-19 POC Routine 10/25/2024 7:50 PM XM1 TANK DRIVER Acute maxillary sinusitis, recurrence not specified HEPATITIS C ANTIBODY Routine 05/16/2024 3:23 PM CDT Encounter for hepatitis C screening test for low risk patient from Last 3 Months or Most Recently Relevant to Health Maintenance Results * COVID-19 POC (10/25/2024 7:50 PM XM1 TANK DRIVER) Pathologist [facility] COVID-19 Ag POC (BD Veritor) Presumptive Negative Presumptive Negative, Invalid [facility] Nasal 10/25/2024 7:50 PM XM1 TANK DRIVER Holly Mota NP POINT OF CARE TEST ORDERABLES Fi nal Result [facility] [address] [place] [address], [facility] * POCT influenza A/B (10/25/2024 7:50 PM XM1 TANK DRIVER) [facility] Rapid Influenza A Ag Negative Negative, Invalid Rapid Influenza B Ag Negative Negative, Invalid Nasal 10/25/2024 7:50 PM XM1 TANK DRIVER Holly Mota DIRECTOR BUSINESS DEVELOPMENT POINT OF CARE TEST ORDERABLES Fi nal Result * POCT rapid strep A (10/25/2024 7:50 PM XM1 TANK DRIVER) Pathologist [facility] Rapid Strep A, POC Negative Negative Swab 10/25/2024 7:50 PM XM1 TANK DRIVER Holly Mota DIRECTOR BUSINESS DEVELOPMENT POINT OF CARE TEST ORDERABLES Fi nal Result * Hepatitis C antibody Blood (05/16/2024 3:23 PM CDT) Hep C Ab Nonreactive Nonreactive Comment: Interpretive [...] last revised on 2020. Testing performed by: [facility], [address] [place] [address], [place]., [address] Blood 05/16/2024 3:23 PM CDT 05/16/2024 8:18 PM CDT Jenny Caban NP LAB MICROBIOLOGY - GENERAL ORDER FRANCIA Final Result Performing Organization Address City/State/[facility] Co de Phone Number [facility] Department of Laboratories [address] from Last 3 Months or Most Recently Relevant to Health Maintenance [facility] CIGNA ALLEGIANCE CIGNA ALLEGIANCE Advance Directives For more information, please contact: [phone] * Full Code (Latest Code Status on [...] 7:25 AM 09/11/2023 5:13 PM Care Teams Internet And E Business Project Manager Relationship Specialty Start Date End Date Jenny Caban NP PCP - General Family Medicine 05/16/24 Indiana Sánchez, OT Occupational Therapist Occupational Therapy 08/12/21
== END 2024-11-29 11:20 | disposition home or self-care (01) ==
PROVIDERS: Emergency Provider Emergency Medicine
DX: R11.2 Nausea with vomiting, unspecified (principal); R19.7 Diarrhea, unspecified; K21.9 Gastro-esophageal reflux disease without esophagitis
CPT/HCPCS: 36415; 80053; 83605; 85025; 85610; 85730; 86850; 86900; 86901; 96361; 96374; 96375; 99284; J1171; J2405; J2470; J7030

== ENCOUNTER 2025-05-01 14:07 | Emergency (ER) | payer OTHER, SELFPAY ==
[2025-05-01] VITALS (9 sets, daily range): BP systolic 136–143; BP diastolic 86–106; PULSE 84–104; RESP 13–21; TEMP 36.8; O2SAT 94–99
--- NOTE | ~2025-05-01 | XR_ITS ---
EXAM/PROCEDURE: XR chest 2V - 05/01/2025 15:05 CDT HISTORY: 44 years old Male with cp on left side TECHNIQUE: Two view(s) of the chest. COMPARISON: None available. FINDINGS: LUNGS/ PLEURA: No focal consolidation. No appreciable pneumothorax or large pleural effusion. HEART/ MEDIASTINUM: Heart appears normal in size. BONES: No acute osseous abnormality. OTHER: Visualized upper abdomen is unremarkable. IMPRESSION: No acute process. Reviewed, dictated and finalized at location A. IMPRESSION: No acute process.
--- NOTE | 2025-05-01 14:09 | ECG_ITS ---
Test Date: 2025-05-01 14:20:05 Measurements Intervals [place] Rate: 103 P: 36 OR: 149 QRS: 76 QRSD: 87 T: 51 QT: 337 QTc: 441 Interpretive Statements SINUS TACHYCARDIA POSSIBLE RIGHT VENTRICULAR CONDUCTION DEVIKA BASELINE ARTIFACT- III BORDERLINE ECG No previous ECG available for comparison Electronically Signed On 05-01-2025 14:40:26 CDT by Ramos Huang D.O.
[2025-05-01] MEDS: ASPIRIN 81 MG CHEWABLE TABLET 324 MG PO (14:27)
[2025-05-01 14:32] LABS: Basophils Absolute Auto 0.1 K/mm3 (0.0-0.1); Basophils Percent Auto 0.6 % (0.2-1.2); Eosinophils Absolute Auto 0.2 K/mm3 (0-0.3); Eosinophils Percent Auto 2.5 % (0-4.4); Hematocrit 47.4 % (42.0-52.0); Hemoglobin 15.8 g/dL (14.0-18.0); Immature Granulocyte Absolute 0.03 K/mm3 (0.00-0.031); Immature Granulocyte Percent A 0.3 % (0-0.5); Lymphocytes Absolute Auto 3.24 K/mm3 (0.9-3.2); Lymphocytes Percent Auto 35.8 % (18.3-44.2); Mean Corpuscular HGB Conc 33.3 g/dl (32-36); Mean Corpuscular Hemoglobin 27.8 pg (26-34); Mean Corpuscular Volume 83.5 fl (80-100); Mean Platelet Volume 9.4 fl (7.4-10.4); Monocytes Absolute Auto 0.6 K/mm3 (0.1-0.6); Neutrophils Absolute Auto 4.9 K/mm3 (1.3-6.7); Neutrophils Percent Auto 53.8 % (45.5-73.1); Platelet Count Result 274 k/mm3 (150-375); Red Blood Count 5.68 M/mm3 (4.6-6.20); Red Cell Distribution Width 13.1 % (11.5-14.5)
[2025-05-01 14:46] LABS: Alanine Aminotransferase 71 U/L (6-50); Albumin Level 4.8 g/dL (3.5-5.1); Alkaline Phosphatase 40 U/L (38-126); Anion Gap 12 mmol/L (4-12); Aspartate Amino Transferase 42 U/L (17-59); Bilirubin,Total 1.5 mg/dL (0.2-1.3); Blood Urea Nitrogen 9 mg/dL (9-20); Calcium 9.6 mg/dL (8.4-10.2); Carbon Dioxide 25 mmol/L (22-30); Chloride 102 mmol/L (98-107); Estimated CRCL calculation 102 ml/min; Estimated Glomerular Filt Rate > 60; Glucose 110 mg/dL (65-110); Lipase 35 U/L (23-300); Potassium 3.6 mmol/L (3.4-5.0); Sodium 139 mmol/L (137-145); Total Protein 8.1 g/dL (6.3-8.2)
[2025-05-01 14:52] LABS: INR 1.1; Partial Thromboplastin Time 29.4 Seconds (22.3-36.8); Prothrombin Time 14.5 Seconds (11.1-14.7)
[2025-05-01 14:57] LABS: Troponin I < 0.012 ng/mL (0.000-0.034)
--- NOTE | 2025-05-01 16:57 | ECG_ITS ---
Test Date: 2025-05-01 17:00:20 Measurements Intervals [place] Rate: P: 0 [place]: 0 QRS: 0 QRSD: 0 T: 0 QT: 0 QTc: 0 Interpretive Statements SINUS RHYTHM CONSIDER RIGHT VENTRICULAR CONDUCTION DELAY BASELINE ARTIFACT- AVR, AVL, AVF, V4-V6 BORDERLINE ECG Compared to ECG 05/01/2025 14:20:05 HEART RATE HAS DECREASED Electronically Signed On 05-01-2025 17:02:48 CDT by Ramos Huang D.O.
[2025-05-01 17:28] LABS: Troponin I < 0.012 ng/mL (0.000-0.034)
--- NOTE | 2025-05-01 17:45 | ED.CHESTPAIN ---
HPI - Chest Pain General Chief Complaint: Chest Pain Stated Complaint: CP Time Seen by Provider: 05/01/25 17:08 Source: patient Mode of arrival: ambulatory Limitations: no limitations History of Present Illness HPI narrative: This is a 44 year old male that presents to the ER for left sided chest pain. Reports he was seated at work when it started. The pain feels sharp in nature. Has improved since onset. No previous history of CAD. Reports family history of CAD. Previous smoker. Denies fever, cough, vomiting, shortness of breath. Related Data Home Medications ?Medication ?Instructions ?Recorded ?Confirmed ?Last Taken ?Type omalizumab 75 mg/0.5 mL 75 mg subcut MONTHLY 01/19/23 01/19/23 Unknown History subcutaneous syringe (Xolair) famotidine 40 mg tablet mg 02/02/23 Unknown History Allergies Allergy/AdvReac Type Severity Reaction Status Date / Time codeine Allergy Hives Verified 05/01/25 14:39 topiramate Allergy Unknown Verified 05/01/25 14:39 Review of Systems Review of Systems: All systems reviewed & are unremarkable except as noted in HPI and below PMFSH Past Medical History Medical History (Updated 05/01/25 @ 18:33 by Mary Cee PA-C) History of hyperlipidemia History of gastroesophageal reflux (GERD) History of seasonal allergies Social History Social History (Updated 06/19/21 @ 06:27 by Elza Gonzalez MD) Smoking status: Never smoker Gender identity (if verbalized by the patient): Male Exam Narrative: GENERAL: Well-appearing, well-nourished, and in no acute distress. HEAD: Normocephalic, atraumatic. EYES: EOMI. ENT: Nares clear, no rhinorrhea or epistaxis. Mucous membranes moist. Oropharynx without tonsillar hypertrophy exudate or other lesions. CHEST: Clear to auscultation. No respiratory distress. No wheezes rales or rhonchi HEART: Regular rate and rhythm. No murmur heard. Normal peripheral pulses. ABDOMEN: Soft, nontender, nondistended, normal active bowel sounds. EXTREMITIES: Normal range of motion. No edema. SKIN: Warm, dry, no rash. NEURO: No focal deficits. Alert and oriented x3. PSYCH: Normal mood and affect Course Course Emergency Course: Patient updated on his workup, resting comfortably Vital Signs Vital signs: Vital Signs Temperature 98.3 F 05/01/25 14:35 Pulse Rate 104 H 05/01/25 14:35 Respiratory Rate 16 05/01/25 14:35 Blood Pressure 143/106 H 05/01/25 14:35 Pulse Oximetry 97 05/01/25 14:35 Oxygen Delivery Room Air 05/01/25 14:35 Temperature 98.2 F 05/01/25 17:19 Pulse Rate 88 05/01/25 17:19 Respiratory Rate 14 05/01/25 17:19 Blood Pressure 142/86 H 05/01/25 17:19 Pulse Oximetry 99 05/01/25 17:19 Oxygen Delivery Room Air 05/01/25 14:35 MDM - Chest Pain MDM Narrative Medical decision making narrative: Patient presents the emergency department for an episode of chest pain today. His vitals are stable. Cbc metabolic panel without concerning findings. EKG without acute ST changes, baseline and 3 hour troponin are negative. D-dimer is not elevated. Chest x-ray without acute cardiopulmonary abnormality. Patient's heart score is 2. He was updated on his workup. Resting comfortably. He is to follow up with his primary provider. He was given warnings to return to the ER Differential Diagnosis Differential diagnosis: Likely stable angina, atypical chest pain, costochondritis, biliary colic and other (GERD) Lab Data Attestation: I reviewed the patient's lab results. 05/01/25 14:24 05/01/25 14:25 Labs: Lab Results 05/01/25 05/01/25 05/01/25 Range/Units 14:24 14:25 17:01 WBC 9.0 (4.5-10.0) K/mm3 RBC 5.68 (4.6-6.20) M/mm3 Hgb 15.8 (14.0-18.0) g/dL Hct 47.4 (42.0-52.0) % MCV 83.5 (80-100) fl MCH 27.8 (26-34) pg MCHC 33.3 (32-36) g/dl RDW 13.1 (11.5-14.5) % Plt Count 274 (150-375) k/mm3 MPV 9.4 (7.4-10.4) fl Immature Gran % (Auto) 0.3 (0-0.5) % Neut % (Auto) 53.8 (45.5-73.1) % Lymph % (Auto) 35.8 (18.3-44.2) % [place] % (Auto) 7.0 (2.6-8.5) % Eos % (Auto) 2.5 (0-4.4) % Baso % (Auto) 0.6 (0.2-1.2) % Lymph # (Auto) 3.24 H (0.9-3.2) K/mm3 [place] # (Auto) 0.6 (0.1-0.6) K/mm3 Eos # (Auto) 0.2 (0-0.3) K/mm3 Baso # (Auto) 0.1 (0.0-0.1) K/mm3 Abs Immat Gran (auto) 0.03 (0.00-0.031) K/mm3 Absolute Neuts (auto) 4.9 (1.3-6.7) K/mm3 Absolute Nucleated RBC 0.000 (0.0-0.012) K/mm3 Nucleated RBC % 0.0 (0.0-0.2) % PT 14.5 (11.1-14.7) Seconds INR 1.1 APTT 29.4 (22.3-36.8) Seconds D-Dimer < 0.27 (<0.48) ug/mL Sodium 139 (137-145) mmol/L Potassium 3.6 (3.4-5.0) mmol/L Chloride 102 (98-107) mmol/L Carbon Dioxide 25 (22-30) mmol/L Anion Gap 12 (4-12) mmol/L BUN 9 D (9-20) mg/dL Creatinine 1.00 (0.7-1.3) mg/dL Estim Creat Clear Calc 102 ml/min Estimated GFR > 60 (59 - ) Glucose 110 (65-110) mg/dL Calcium 9.6 (8.4-10.2) mg/dL Total Bilirubin 1.5 H (0.2-1.3) mg/dL AST 42 (17-59) U/L ALT 71 H (6-50) U/L Alkaline Phosphatase 40 (38-126) U/L Troponin I < 0.012 < 0.012 (0.000-0.034) ng/mL Total Protein 8.1 (6.3-8.2) g/dL Albumin 4.8 (3.5-5.1) g/dL Lipase 35 (23-300) U/L Imaging Data Radiologist's impression: ITS Impressions Chest X-Ray 05/01/25 15:21 IMPRESSION: No acute process. ECG Data EKG #1: ECG completion date: 05/01/25 EKG Interpretation: tachycardia, sinus rhythm, no ST changes and normal QT Critical Care Time Critical Care Time Critical Care Time: No Discharge Plan Discharge Clinical Impression: Atypical chest pain Patient Disposition: Home Condition: Improved Instructions: Chest Pain (ED) Additional Instructions: Return to the emergency department if you experience fever, chest pain, shortness of breath, abdominal pain with nausea and vomiting, or any other symptoms that are concerning to you. Take your home medications as prescribed Follow up with your primary care doctor Patient Language: Luxem[place]ish Prescriptions: No Action famotidine 40 mg tablet Xolair 75 mg/0.5 mL syringe 75 mg SUBCUT MONTHLY ibuprofen 800 mg tablet 800 mg PO Q6H PRN (Reason: pain) Qty: 30 0RF omeprazole 20 mg capsule,delayed release(DR/EC) 20 mg PO DAILY 14 Days Qty: 14 0RF ondansetron 4 mg tablet,disintegrating 4 mg PO Q8H PRN (Reason: nausea and vomiting) Qty: 14 0RF Follow-up/Referrals: UNKNOWN,DOCTOR [Primary Care Provider] - Quality HEART score for chest pain patients History: slightly suspicious ECG: normal Age: < or = to 45 years Risk factors: > or = to 3 risk factors of atherosclerotic disease Troponin: < or = to 1x normal limit Heart score: 2
[2025-05-01 18:18] LABS: D Dimer < 0.27 ug/mL (<0.48)
[2025-05-01] MEDS: ACETAMINOPHEN 500 MG TABLET 1000 MG PO (18:33)
[2025-05-01] MEDS: ONDANSETRON INJ 4 MG/2 ML VIAL IV PUSH (18:35)
[2025-05-01] MEDS: PANTOPRAZOLE SODIUM IV 40 MG VIAL IV PUSH (18:35)
== END 2025-05-01 18:53 | disposition home or self-care (01) ==
PROVIDERS: Student in an Organized Health Care Education/Training Program; Emergency Provider Physician Assistant
DX: R07.89 Other chest pain (principal)
CPT/HCPCS: 36415; 71046; 80053; 83690; 84484; 85025; 85380; 85610; 85730; 93005; 96374; 96375; 99284; A9270; J2405; J2470